=== PATIENT | female | born 1995 | race Hispanic/Latino ===

== ENCOUNTER 2018-02-23 15:51 | Emergency (ER) | payer SELFPAY ==
[2018-02-23 16:37] LABS: Urine Blood NEGATIVE (NEG); Urine Glucose 1+ (NEG); Urine Protein 2+ (NEG)
[2018-02-23 16:45] LABS: Urine Bacteria <20 /HPF (<20); Urine Culture Reflex Order NOT NEEDED; Urine RBC <5 /HPF (NONE SEEN)
--- NOTE | 2018-02-23 17:18 | EDPHYS ---
Physician Documentation [facility] Name: Rosa Rodriguez Age: 22 yrs Sex: Female : 1995 Arrival Date: 02/23/2018 Time: 15:55 Bed 23 Private MD: ED Physician Thor Turner HPI: 02/23 16:21 This 22 yrs old Female presents to ER via Ambulatory with complaints of Pain cp With Urination. 16:21 The patient presents with urinary symptoms, dysuria, frequency. cp 16:21 Onset: The symptoms/episode began/occurred 2 day(s) ago. Associated signs and symptoms: cp Pertinent negatives: fever, vaginal bleeding, vaginal discharge, abdominal pain, back pain. 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 - Social history:: Smoking status: Patient/guardian denies using tobacco. - Ebola Screening: : Patient denies travel to an Ebola-affected area in the 21 days before illness onset. ROS: 16:22 Constitutional: Negative for body aches, chills, fever, poor PO intake. cp 16:22 Back: Negative for pain at rest, pain with movement, radiated pain. 16:22 : Positive for urinary frequency, burning with urination, Negative for vaginal bleeding, vaginal discharge. 16:22 Neuro: Negative for altered mental status, dizziness, headache, weakness. 16:22 All other systems are negative. Exam: 16:25 Constitutional: The patient appears in no acute distress, alert, awake, comfortable, cp non-toxic, well developed, well nourished. 16:25 Head/Face: Normocephalic, atraumatic. cp 16:25 Eyes: Periorbital structures: appear normal, Conjunctiva: normal, no exudate, no injection, Lids and lashes: appear normal, bilaterally. 16:25 ENT: External ear(s): are unremarkable, Nose: is normal, Mouth: is normal, Posterior pharynx: is normal, airway is patent. 16:25 Chest/axilla: Inspection: normal. 16:25 Cardiovascular: Rate: normal. 16:25 Respiratory: the patient does not display signs of respiratory distress, Respirations: normal, no use of accessory muscles, no retractions, no splinting, no tachypnea, labored breathing, is not present. 16:25 Abdomen/GI: Exam negative for discomfort, distension, guarding, Inspection: abdomen appears normal. 16:25 Back: pain, is absent, ROM is normal. Vital Signs: 16:15 BP 126 / 74; Pulse 65; Resp 16; Temp 97.6; Pulse Ox 100% on R/A; Weight 79.38 kg (R); aj1 Height 5 ft. 4 in. (162.56 cm) (R); Pain 8/10; 17:28 BP 115 / 78; Pulse 70; Resp 18; Pulse Ox 100% on R/A; Pain 2/10; mg2 16:15 Body Mass Index 30.04 (79.38 kg, 162.56 cm) aj1 MDM: 16:18 Patient medically screened. cp 16:30 Differential diagnosis: urinary tract infection, pyelonephritis, vaginitis, sepsis. cp 17:17 Data reviewed: vital signs, nurses notes, lab test result(s), and as a result, I will cp discharge patient. 17:17 Counseling: I had a detailed discussion with the patient and/or guardian regarding: the cp historical points, exam findings, and any diagnostic results supporting the discharge/admit diagnosis, lab results, to return to the emergency department if symptoms worsen or persist or if there are any questions or concerns that arise at home. 02/23 16:22 Order name: Urine Microscopic Only 02/23 16:22 Order name: Urine Culture 02/23 16:22 Order name: Urine Microscopic Only; Complete Time: 17:15 EDMT 02/23 17:15 Interpretation: Normal except: UWBC 20-50; SQEPI 10-20. 02/23 16:22 Order name: Urine Culture EDMT 02/23 16:35 Order name: Urine Dipstick--Ancillary (enter results); Complete Time: 17:15 02/23 16:35 Order name: Urine --Ancillary (enter results); Complete Time: 17:15 02/23 16:19 Order name: Urine Dipstick-Ancillary (obtain specimen); Complete Time: 16:33 cp 02/23 16:19 Order name: Urine Test (obtain specimen); Complete Time: 16:33 cp Administered Medications: No medications were administered Disposition: 18:00 Chart complete. cp 18:39 Co-signature as Attending Physician, Thor Turner MD. rn Disposition: 02/23/18 17:17 Discharged to Home. Impression: Dysuria. - Condition is Stable. - Discharge Instructions: Dysuria. - Prescriptions for Bactrim DS 800- 160 mg Oral Tablet - take 1 tablet by ORAL route every 12 hours for 7 days; 14 tablet. - Medication Reconciliation Form, Thank You Letter, Antibiotic Education, Prescription Opioid Use form. - Follow up: Private Physician; When: 2 - 3 days; Reason: symptoms continue. - Problem is new. - Symptoms are unchanged. Signatures: Dispatcher [employer] EDNunu Torrez RN RN aj1 Thor Turner MD MD rn Ronnie Evans PA PA cp Domingo Stone RN RN mg2 Corrections: (The following items were deleted from the chart) 17:29 17:17 02/23/2018 17:17 Discharged to Home. Impression: Dysuria. Condition is Stable. mg2 Forms are Medication Reconciliation Form, Thank You Letter, Antibiotic Education, Prescription Opioid Use. Follow up: Private Physician; When: 2 - 3 days; Reason: symptoms continue. Problem is new. Symptoms are unchanged. cp
--- NOTE | 2018-02-23 17:18 | ER ---
Nurse's Notes [facility] Name: Rosa Rodriguez Age: 22 yrs Sex: Female : 1995 Arrival Date: 02/23/2018 Time: 15:55 Bed 23 Private MD: Diagnosis: Dysuria Presentation: 02/23 16:12 Presenting complaint: Patient states: Reports dysuria and urinary frequency since aj1 Monday. She bought some Azo's, but they aren't helping. She tried calling her doctor but they couldn't get her in until next week and she did not feel like she could wait that long. denies fever. Transition of care: patient was not received from another setting of care. Onset of symptoms was February 21, 2018. Risk Assessment: Do you want to hurt yourself or someone else? Patient reports no desire to harm self or others. Initial Sepsis Screen: Does the patient meet any 2 criteria? No. Patient's initial sepsis screen is negative. Does the patient have a suspected source of infection? No. Patient's initial sepsis screen is negative. Care prior to arrival: None. 16:12 Method Of Arrival: Ambulatory aj 16:12 Acuity: EUGENE 3 aj1 Triage Assessment: 16:15 General: Appears in no apparent distress. comfortable, Behavior is calm, cooperative, aj1 appropriate for age. Pain: Complains of pain in groin Pain currently is 8 out of 10 on a pain scale. Neuro: Level of Consciousness is awake, alert, obeys commands. Cardiovascular: Patient's skin is warm and dry. Respiratory: Airway is patent Respiratory effort is even, unlabored, Respiratory pattern is regular, symmetrical. 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 - Social history:: Smoking status: Patient/guardian denies using tobacco. - Ebola Screening: : Patient denies travel to an Ebola-affected area in the 21 days before illness onset. Screenin:38 Abuse screen: Denies threats or abuse. Denies injuries from another. Nutritional mg2 screening: No deficits noted. Tuberculosis screening: No symptoms or risk factors identified. Fall Risk None identified. Assessment: 16:52 General: Appears in no apparent distress. comfortable, Behavior is calm, cooperative. mg2 Pain: Complains of pain in lower abdomen Pain does not radiate. Pain currently is 8 out of 10 on a pain scale. Quality of pain is described as burning, aching, Pain began gradually, 2-3 days ago. Is intermittent. Neuro: Level of Consciousness is awake, alert, obeys commands, Oriented to person, place, time, situation. Cardiovascular: Capillary refill < 3 seconds Patient's skin is warm and dry. Respiratory: Airway is patent Respiratory effort is even, unlabored, Respiratory pattern is regular, symmetrical. GI: No signs and/or symptoms were reported involving the gastrointestinal system. : Urine is orange colored- she was taking azo Reports burning with urination, pain in suprapubic area. EENT: No signs and/or symptoms were reported regarding the EENT system. Derm: Skin is intact, is healthy with good turgor, Skin is pink, warm \T\ dry. normal. Musculoskeletal: Circulation, motion, and sensation intact. 17:28 Reassessment: Patient appears in no apparent distress at this time. Patient and/or mg2 family updated on plan of care and expected duration. Pain level reassessed. Patient is alert, oriented x 3, equal unlabored respirations, skin warm/dry/pink. Vital Signs: 16:15 BP 126 / 74; Pulse 65; Resp 16; Temp 97.6; Pulse Ox 100% on R/A; Weight 79.38 kg (R); aj1 Height 5 ft. 4 in. (162.56 cm) (R); Pain 8/10; 17:28 BP 115 / 78; Pulse 70; Resp 18; Pulse Ox 100% on R/A; Pain 2/10; mg2 16:15 Body Mass Index 30.04 (79.38 kg, 162.56 cm) [facility] ED Course: 15:55 Patient arrived in ED. as 16:15 Triage completed. 1 16:15 Arm band placed on Patient placed in an exam room. [facility] 16:17 Jas Cano PA is PHCP. [place] 16:17 Thor Turner MD is Attending Physician. [facility] 16:17 Ronnie Evans PA is PHCP. cp 16:36 Urine collected: clean catch specimen, tea colored. tt1 16:37 Domingo Stone, RN is Primary Nurse. mg2 16:38 No provider procedures requiring assistance completed. mg2 16:54 Patient has correct armband on for positive identification. Bed in low position. Pulse mg2 ox on. NIBP on. Door closed. 17:28 Patient did not have IV access during this emergency room visit. mg2 Administered Medications: No medications were administered Outcome: 17:17 Discharge ordered by MD. cp 17:28 Discharged to home ambulatory. mg2 17:28 Condition: stable 17:28 Discharge instructions given to patient, Instructed on discharge instructions, follow up and referral plans. medication usage, Demonstrated understanding of instructions, follow-up care, medications, Prescriptions given X 1. 17:29 Patient left the ED. mg2 Signatures: Nunu Ca, RN RN aj1 Jas Cano PA PA jmm Martinez, Amelia as Page, Corey, PA PA cp La Nena, Jessi tt1 Domingo Stone, RN RN mg2
== END 2018-02-23 17:29 | disposition home or self-care (01) ==
LOC: ER 15:51
DX: R30.0 Dysuria (principal)
CPT/HCPCS: 81003; 81015; 81025; 87086; 87088; 99283

== ENCOUNTER 2018-12-09 20:03 | Emergency (ER) | payer SELFPAY ==
--- OUTSIDE RECORDS SUMMARY | 2018-12-09 20:05 | XMS REPORT ---
:1995 [facility] [address] [place] [place] [id number] Care Team Providers Name Role Phone Unavailable Unavailable Unavailable Problems This patient has no known problems. Allergies, Adverse Reactions, Alerts This patient has no known allergies or adverse reactions. Medications This patient has no known medications.
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
[2018-12-09] MEDS ORDERED: ONDANSETRON 4 MG (ODT) TAB ONE (20:53)
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
== END 2018-12-09 21:15 | disposition home or self-care (01) ==
LOC: ER 20:03
DX: S00.03XA Contusion of scalp, initial encounter (principal); S00.90XA Unspecified superficial injury of unspecified part of head, initial encounter; Y04.0XXA Assault by unarmed brawl or fight, initial encounter; R11.2 Nausea with vomiting, unspecified
CPT/HCPCS: 70450; 70486; 72125; 76377; 99284

== ENCOUNTER 2019-06-18 14:58 | Emergency (ER) | payer SELFPAY ==
--- OUTSIDE RECORDS SUMMARY | 2019-06-18 15:00 | XMS REPORT ---
:1995 [facility] Address [address] [place] [address] Dr. [address] [place] [address] Care Team Providers Name Role Phone Unavailable Unavailable Unavailable Problems This patient has no known problems. Allergies, Adverse Reactions, Alerts This patient has no known allergies or adverse reactions. Medications This patient has no known medications.
--- OUTSIDE RECORDS SUMMARY | 2019-06-18 15:01 | XMS REPORT | Summary of Care ---
:1995 Author Organization [facility] Address [address] [place] [address] Care Team Providers Name Role Phone Carlita Sahu Primary Care Provider Encounter Details Date Type Department Care Team Description 01/25/2019 Orders Only [facility] Doctor Unassigned, No [address] [facility] [place] [address] [address] [place] [address] Allergies No Known Allergiesdocumented as of this encounter (statuses as of 01/25/2019) Medications Medication Sig Dispensed Refills Start Date End Date Status norgestimate-ethinyl Take 1 tablet by 1 Package 3 10/04/2018 Active estradiol (ORTHO mouth daily. TRI-CYCLEN, 28,) 0.18/0.215/0.25 mg-35 mcg (28) tabletIndications: Oral contraception initial prescription documented as of this encounter (statuses as of 01/25/2019) Active Problems Problem Noted Date Cervical high risk human papillomavirus (HPV) DNA test positive 10/04/2018 HSIL (high grade squamous intraepithelial lesion) on Pap smear of cervix 10/04 Lump or mass in breast 03/22/2017 Well woman exam 07/14/2015 Contraceptive management 07/14/2015 Morbid obesity 07/14/2015 Screen for STD (sexually transmitted disease) 07/14/2015 documented as of this encounter (statuses as of 01/25/2019) Resolved Problems Problem Noted Date Resolved Date Vaginal odor 03/22/2017 10/04/2018 Pap smear of cervix with ASCUS, cannot exclude HGSIL 08/12/2015 10/04/[address] 07/14/2015 10/04/2018 Overview: Removal date 05/31/19 Tobacco use disorder 07/14/2015 10/04/2018 documented as of this encounter (statuses as of 01/25/2019) Immunizations Name Administration Dates Next Due HPV 03/02/2016 HPV9 08/31/2016, 09/14/2015 Tdap 07/14/2015 documented as of this encounter Social History Tobacco Use Types Packs/Day Years Used Date Former Smoker 0.25 Quit: 08/02/2015 Smokeless Tobacco: Never Used Alcohol Use Drinks/Week oz/Week Comments No 0 Standard drinks or equivalent 0.0 Sex Assigned at Date Recorded Not on file Job Start Date Occupation Industry Not on file Not on file Not on file Travel History Travel Start Travel End No recent travel history available. documented as of this encounter Last Filed Vital Signs Not on filedocumented in this encounter Plan of Treatment Health Maintenance Due Date Last Done Comments VARICELLA VACCINES (1 of 2 2007 - 13+ 2-dose series) INFLUENZA VACCINE (#1) 2019 CHLAMYDIA SCREENING 10/05/2019 10/04/2018, 05/05/2017, 03/22/2017, Additional history exists PAP SMEAR 10/04/2021 10/04/2018, 03/22/2017, 03/02/2016, Additional history exists DTaP,Tdap,and Td Vaccines 07/14/2025 07/14/2015 (2 - Td) HPV VACCINES Completed 08/31/2016, 03/02/2016, 09/14/2015 PNEUMOCOCCAL 0-64 YEARS Aged Out No longer eligible COMBINED SERIES based on patient's age to complete this topic documented as of this encounter Procedures Procedure Name Priority Date/Time Associated Diagnosis Comments NO SHOW OR MISSED Routine 01/25/2019 3:38 PM APPOINTMENT POLICY CDT ACKNOWLEDGEMENT documented in this encounter Results Not on filedocumented in this encounter Insurance Payer Benefit Plan Subscriber ID Effective Phone Address Type / Group Dates [facility] xxxxxxxxx 2018-Prese [phone] Medicaid WOMEN nt [address] [place] [address] documented as of this encounter Advance Directives Name Relationship Healthcare Agent Relationship Communication Xuan Pillo Mother Primary healthcare agent
--- OUTSIDE RECORDS SUMMARY | 2019-06-18 15:02 | XMS REPORT | Summary of Care ---
:1995 Author Organization [facility] Address [address] [place] [address] Care Team Providers Name Role Phone Carlita Sahu [facility] Primary Care Provider Reason for Visit Reason Comments STD Testing CONTROL Breast Pain Encounter Details Date Type Department Care Team Description 01/25/2019 Office Visit [facility]- Carlita Sahu, Screen for STD (sexually transmitted disease) (Primary Dx); [facility] Encounter for surveillance of contraceptive pills; [address] Lump or mass in breast [facility] A [address] [place], [place] [id number] Allergies No Known Allergiesdocumented as of this [...] of this encounter Last Filed Vital Signs Vital Sign Reading Time Taken Comments Blood Pressure 110/70 01/25/2019 3:55 PM CDT Pulse 75 01/25/2019 3:55 PM CDT Temperature 37.2 C (99 F) 01/25/2019 3:55 PM CDT Respiratory Rate 16 01/25/2019 3:55 PM CDT Oxygen Saturation - - Inhaled Oxygen Concentration - - Weight 79.5 kg (175 lb 4 oz) 01/25/2019 3:55 PM CDT Height - - Body Mass Index 30.08 10/04/2018 1:14 PM CDT documented in this encounter Progress Notes Carlita Sahu, DIRECTOR MARKETING ANALYTICS - 01/25/2019 3:30 PM CDT Chief complaint: Chief Complaint Patient presents with STD Testing CONTROL Breast Pain HPI Rosa Rodriguez is a 23 year old here today with multiple complaints Patient requesting STD testing. Recently broke up with boyfriend and had unprotected intercourse with a new partner. Denies symptoms. Pt desires to restart OCPs. She was started on OCPs in 09/2018. Took OCPs for 3 months, and stopped taking pills last month. Patient's last menstrual period was 01/09/2019. Had unprotected intercourse last week. Pt continues to report a painful lump in the upper outer quadrant of her left breast. She reports the lump "swells" during her menses and is more painful. She also reports abdominal cramping that started this week. No associated symptoms. Histories OB History Para Term AB Living 1 1 1 1 SAB TAB Ectopic Multiple Live Births 1 # Outcome Date GA Lbr Zen/2nd Weight Sex Delivery Anes PTL Lv 1 Term 09/20/10 40w0d 8 lb 7.8 oz (3.85 kg) F SEC Spinal N ERICK Past Medical History: Diagnosis Date Pap smear abnormality of cervix 07/14/2015 asc-h Family History Problem Relation Age of Onset Heart Father High cholesterol Father Coronary Heart Disease Father Heart Paternal Grandfather High cholesterol Paternal Grandfather Coronary Heart Disease Paternal Grandfather No Significant Medical Problems Mother Diabetes Maternal Grandmother No Significant Medical Problems Maternal Grandfather Hypertension Paternal Grandmother Coronary Heart Disease Paternal Grandmother High cholesterol Paternal Grandmother No Significant Medical Problems Paternal Uncle No Significant Medical Problems Sister No Significant Medical Problems Brother No Significant Medical Problems Maternal Aunt No Significant Medical Problems Maternal Uncle No Significant Medical Problems Paternal Aunt Arthritis NoFHx Asthma NoFHx defects NoFHx Breast Cancer NoFHx Colon Cancer NoFHx Ovarian Cancer NoFHx Uterine Cancer NoFHx Cancer NoFHx Depression NoFHx Genetic NoFHx Mental retardation NoFHx Neurological NoFHx Osteoporosis NoFHx Psychiatry NoFHx Family Status Relation Name Status Fa Alive PGFa Mo Alive MGMo Alive MGFa Alive PGMo Alive PUnc Alive Sis Alive Bro Alive MAunt Alive MUnc Alive PAunt Alive NoFHx (Not Specified) Past Surgical History: Procedure Laterality Date SECTION 09-20-2010 Social History Socioeconomic History Marital status: Single Spouse name: Not on file Number of children: Not on file Years of education: Not on file Highest education level: Not on file Occupational History Not on file Social Needs Financial resource strain: Not on file Food insecurity: Worry: Not on file Inability: Not on file Transportation needs: Medical: Not on file Non-medical: Not on file Tobacco Use Smoking status: Former Smoker Packs/day: 0.25 Last attempt to quit: 08/02/2015 Years since quittin.4 Smokeless tobacco: Never Used Substance and Sexual Activity Alcohol use: No Alcohol/week: 0.0 oz Drug use: No Sexual activity: Yes Partners: Male control/protection: Implant, Condom Comment: last sexual intercourse 10/02/2018 Lifestyle Physical activity: Days per week: Not on file Minutes per session: Not on file Stress: Not on file Relationships Social connections: Talks on phone: Not on file Gets together: Not on file Attends jehovah's witness service: Not on file Active member of club or organization: Not on file Attends meetings of clubs or organizations: Not on file Relationship status: Not on file Intimate partner violence: Fear of current or ex partner: Not on file Emotionally abused: Not on file Physically abused: Not on file Forced sexual activity: Not on file Other Topics Concern Not on file Social History Narrative Oriental Orthodox preference none. Patient lives with daughter. Social History Substance and Sexual Activity Sexual Activity Yes Partners: Male control/protection: Implant, Condom Comment: last sexual intercourse 10/02/2018 Labs Labs are pending. Radiology Radiology pending. Allergies Rosa has No Known Allergies. Medications Rosa has a current medication list which includes the following prescription( s): norgestimate-ethinyl estradiol. Review of Systems Constitutional: Negative. Breasts: Positive for mass and pain. Genitourinary: Negative. Neurological: Negative. Psychiatric/Behavioral: Negative. Endocrine: Endocrine negative BP 110/70 | Pulse 75 | Temp 37.2 C (99 F) | Resp 16 | Wt 175 lb 4 oz ( 79.5 kg) | LMP 01/09/2019 | BMI 30.08 kg/m Pregravid BMI: Could not be calculated Physical Exam Vitals reviewed. Constitutional: She is oriented to person, place, and time. She appears well- developed and well-nourished. Pulmonary/Chest: Normal inspiratory effort. Neuro/Psychiatric: She has a normal mood and affect. She is oriented to person, place, and time. Breast: Left breast exhibits mass and tenderness. There is a dense area palpated in the left breast area of patient concern. No distinct mass appreciated. 4cm from nipple at 2 o'clock. Assessment/Plan 1. Screen for STD (sexually transmitted disease) Reviewed safe sex practices - GC & CHLAMYDIA AMPLIFIED ASSAY - TRICHOMONAS AMPLIFIED ASSAY 2. Encounter for surveillance of contraceptive pills Desires to restart. UPT today negative. Pt instructed to abstain x 2 week and RTC for 2nd UPT and OCP restart. - POCT TEST 3. Lump or mass in breast Will screen for BCCS prior to proceeding with breast imaging. Will plan for diagnostic mammo with possible ultrasound. Return to clinic in 2 weeks. Discussed treatment options. Reviewed patient instructions and provided printed copy. This visit did not involve counseling and coordination that comprised more than 50% of the visit time. documented in this encounter Plan of Treatment Date Type Specialty Care Team Description 01/28/2019 Office Visit [facility], [facility] Room 02/08/2019 Office Visit [facility] Carlita Sahu FNP [address] [place] [address] [phone] Name Type Priority Associated Diagnoses Date/Time GC & CHLAMYDIA AMPLIFIED LAB Routine Screen for STD (sexually 01/25/2019 4 :02 PM ASSAY transmitted disease) CDT TRICHOMONAS AMPLIFIED LAB Routine Screen for STD (sexually 01/25/2019 4: 02 PM ASSAY transmitted disease) CDT Health Maintenance Due Date Last Done Comments [...] Procedure Name Priority Date/Time Associated Diagnosis Comments POCT Routine 01/25/2019 4:04 Encounter for Results for this TEST PM CDT surveillance of procedure are in contraceptive pills the results section. documented in this encounter Results POCT TEST (01/25/2019 4:04 PM CDT) POCT PREG Negative On board controls acceptable Yes with C Line POCT PREG LOT # POCT PREG TEST DATE Specimen Urine - URINE, CLEAN CATCH documented in this encounter Visit Diagnoses Diagnosis Screen for STD (sexually transmitted disease) - Primary Screening examination for venereal disease Encounter for surveillance of contraceptive pills Surveillance of previously prescribed contraceptive pill Lump or mass in breast documented in this encounter Insurance Payer Benefit Plan Subscriber ID Effective Phone Address Type / Group Dates [facility] xxxxxxxxx 2018-Tika [phone] Medicaid WOMEN nt [address] [place] [address] documented as of this encounter Advance Directives Name Relationship Healthcare Agent Relationship Communication Xuan Pillo Mother Primary healthcare agent
--- OUTSIDE RECORDS SUMMARY | 2019-06-18 15:02 | XMS REPORT | Summary of Care ---
:1995 Author Organization [facility] Address [address] [place] [address] Care Team Providers Name Role Phone Carlita Sahu [facility] Primary Care Provider Reason for Visit Reason Comments STD Testing CONTROL Breast Pain Encounter Details Date Type Department Care Team Description 01/25/2019 Office Visit [facility]- Carlita Sahu, Screen for STD (sexually transmitted disease) (Primary Dx); [facility] Encounter for surveillance of contraceptive pills; [address] Lump or mass in breast [facility] A [address] [place], [place] [id number] Allergies No Known Allergiesdocumented as of this [...] in this encounter Progress Notes Carlita Sahu, MENTAL TESTER - 01/25/2019 3:30 PM CDT Chief complaint: [...] file Gets together: Not on file Attends yazidism service: Not on file Active member of [...] Concern Not on file Social History Narrative Amish preference none. Patient lives with daughter. Social History Substance and Sexual Activity Sexual Activity Yes Partners: Male control/protection: Implant, Condom Comment: last sexual intercourse 10/02/2018 Labs Labs are pending. Radiology Radiology pending. Allergies Roas has No Known Allergies. Medications Rosa has [...] Description 01/28/2019 Office Visit [facility] 2, [facility] Room 02/08/2019 Office Visit [facility] Carlita Sahu FNP [address] [place] [address] [phone] Name Type Priority Associated Diagnoses Date/Time GC [...] Effective Phone Address Type / Group Dates [facility] xxxxxxxxx 2018-Tika [phone] Medicaid WOMEN nt [address] [place] [address] documented as of this encounter Advance Directives Name Relationship Healthcare Agent Relationship Communication Xuan Pillo Mother Primary healthcare agent
--- OUTSIDE RECORDS SUMMARY | 2019-06-18 15:03 | XMS REPORT | Summary of Care ---
:1995 Author Organization [facility] Address [address] [place] [id number] Care Team Providers Name Role Phone Carlita Sahu Primary Care Provider Reason for Visit Reason Comments CONTROL Encounter Details Date Type Department Care Team Description 02/08/2019 Nurse Visit [facility]- Carlita Sahu, [facility] [address] [place] [address] Encounter for initial prescription of contraceptive pills ( Primary Dx); [place] Visit, [facility] Nurse Oral contraception initial prescription [address] [place] [address] Allergies No Known Allergiesdocumented as of this encounter (statuses as of 02/08/2019) Medications Medication Sig Dispensed Refills Start Date End Date Status norgestimate-ethinyl Take 1 tablet 1 Package 8 02/08/2019 Active estradiol (ORTHO by mouth TRI-CYCLEN, 28,) daily. 0.18/0.215/0.25 mg-35 mcg (28) tabletIndications: Oral contraception initial prescription norgestimate-ethinyl Take 1 tablet 1 Package 3 10/04/2018 02/08/2019 Discontinued estradiol (ORTHO by mouth TRI-CYCLEN, 28,) daily. 0.18/0.215/0.25 mg-35 mcg (28) tabletIndications: Oral contraception initial prescription documented as of this encounter (statuses as of 02/08/2019) Active Problems Problem Noted Date Cervical high risk human papillomavirus (HPV) DNA test positive 10/04/2018 HSIL (high grade squamous intraepithelial lesion) on Pap smear of cervix 10/04 Lump or mass in breast 03/22/2017 Well woman exam 07/14/2015 Contraceptive management 07/14/2015 Morbid obesity 07/14/2015 Screen for STD (sexually transmitted disease) 07/14/2015 documented as of this encounter (statuses as of 02/08/2019) Resolved Problems Problem Noted Date Resolved Date Vaginal odor 03/22/2017 10/04/2018 Pap smear of cervix with ASCUS, cannot exclude HGSIL 08/12/2015 10/04/[address] 07/14/2015 10/04/2018 Overview: Removal date 05/31/19 Tobacco use disorder 07/14/2015 10/04/2018 documented as of this encounter (statuses as of 02/08/2019) Immunizations Name Administration Dates Next Due HPV [...] Sign Reading Time Taken Comments Blood Pressure 117/71 02/08/2019 4:03 PM CDT Pulse 84 02/08/2019 4:03 PM CDT Temperature 36.7 C (98 F) 02/08/2019 4:03 PM CDT Respiratory Rate 16 02/08/2019 4:03 PM CDT Oxygen Saturation - - Inhaled Oxygen Concentration - - Weight 77.8 kg (171 lb 7 oz) 02/08/2019 4:03 PM CDT Height 162.6 cm (5' 4") 02/08/2019 4:03 PM CDT Body Mass Index 29.43 02/08/2019 4:03 PM CDT documented in this encounter Patient Instructions Patient InstructionsRoxane Alvarado LVN - 02/08/2019 3:30 PM CDT Control: The Pill control pills contain hormones that help prevent . The pills are prescribed by your healthcare provider. There are many types of control pills available. If you have side effects from one type of pill, tell your healthcare provider. He or she may be able to prescribe a pill that works better for you. rates Talk to your healthcare provider about the effectiveness of this control method. Using the pill Take one pill daily. Take it at around the same time each day. Follow your healthcare providers guidelines on when to start your first pack of pills. You mayneed to use another form of control for a week or more after you start. Know what to do if you forget to take a pill. (Consult your healthcare provider or check the package.) If you miss more than one pill, you may need to use a backup method of control for a weekor more. Pros Low rate No interruption to sex Easy to use Can help make periods more regular May lower your risk of ovarian cysts and certain cancers May decrease menstrual cramps, menstrual flow, and acne Cons Does not protect against sexually transmittedinfection (STIs) Requires taking a pill on time each day May not work as well when taken with certain other medicines (check with your pharmacist) May cause side effects such as nausea, irregular bleeding, headaches, breast tenderness, fatigue,or mood changes (these often go away within 3 months) May increase the risk of blood clots,heart attack, and stroke The pill may not be for you The pill may not be for you if: You are a smoker and over age 35 You havehigh blood pressureor gallbladder, liver, cerebrovascular or heart disease You have diabetes, migraines, blood clot in the vein or artery, lupus, depression, certain lipid disorders, or take medicines that interfere with the pill In these cases, discuss the risks with your healthcare provider. Date Last Reviewed: 07/20/201619998509-7857 [employer]. [address] [place] [address]. All rights reserved. This information is not intended as a substitute for professional medical care. Always follow your healthcare professional's instructions. documented in this encounter Progress Notes Roxane Alvarado LVN - 02/08/2019 3:30 PM CDTPatient present for ocp start. UPT negative today, last intercourse 01/19/2019. Per provider refilledpatient Ortho tri-cyclen x 9. OCPs called into pharmacy on file. Patient provided with education both written and verbal on control method chosen. Instructed patient to use a back up method for one month. Advised patient to RTC in 09/2019 months for WWE. Patient verbalized understanding. documented in this encounter Plan of Treatment Date Type Specialty Care Team Description 02/11/2019 Appointment Radiology Carlita Sahu, [facility] [address] [place] [address] [phone] 02/13/2019 Appointment Radiology Carlita Sahu, [facility] [address] [place], [place] [id number] 10/07/2019 Office Visit [facility] Carlita Sahu FNP [address] [place], [place] [address] Health Maintenance Due Date Last Done Comments VARICELLA VACCINES (1 of 2 2007 - 13+ 2-dose series) INFLUENZA VACCINE (#1) 2019 CHLAMYDIA SCREENING 01/26/2020 01/25/2019, 10/04/2018, 05/05/2017, Additional history exists PAP SMEAR 10/04/2021 10/04/2018, 03/22/2017, 03/02/2016, Additional history exists DTaP,Tdap,and Td Vaccines 07/14/2025 07/14/2015 (2 - Td) HPV VACCINES Completed 08/31/2016, 03/02/2016, 09/14/2015 PNEUMOCOCCAL 0-64 YEARS Aged Out No longer eligible COMBINED SERIES based on patient's age to complete this topic documented as of this encounter Procedures Procedure Name Priority Date/Time Associated Diagnosis Comments POCT Routine 02/08/2019 4:12 Encounter for initial Results for this TEST PM CDT prescription of procedure are in contraceptive pills the results section. documented in this encounter Results POCT TEST (02/08/2019 4:12 PM CDT) POCT PREG Negative On board controls acceptable Yes with C Line POCT PREG LOT # POCT PREG TEST DATE Specimen Urine - URINE, CLEAN CATCH documented in this encounter Visit Diagnoses Diagnosis Encounter for initial prescription of contraceptive pills - Primary General counseling for prescription of oral contraceptives Oral contraception initial prescription documented in this encounter Insurance Payer Benefit Plan Subscriber ID Effective Phone Address Type / Group Dates [facility] xxxxxxxxx 2018-Tika [phone] Medicaid WOMEN nt [address] [place] [address] documented as of this encounter Advance Directives Name Relationship Healthcare Agent Relationship Communication Xuan Pillo Mother Primary healthcare agent
--- OUTSIDE RECORDS SUMMARY | 2019-06-18 15:03 | XMS REPORT | Summary of Care ---
:1995 Author Organization [facility] Address [address] [place] [id number] Care Team Providers Name Role Phone Carlita Sahu BUSINESS OFFICE ASSOCIATE Primary Care Provider Reason for Referral Radiology Services (Routine) Status Reason Specialty Diagnoses / Referred By Referred To Procedures Contact Contact New Request Diagnostic Diagnoses Breast mass, left Carlita Sahu Radiology Procedures BI ULTRASOUND BREAST COMPLETE LEFT N, BUSINESS OFFICE ASSOCIATE [address] [place] [address] Radiology Services (Routine) Status Reason Specialty Diagnoses / Referred By Referred To Procedures Contact Contact New Request Diagnostic Diagnoses Breast mass, left Carlita Sahu Radiology Procedures BI DIAGNOSTIC MAMMOGRAM LEFT N, BUSINESS OFFICE ASSOCIATE [address] [place] [address] Reason for Visit Reason Comments BREAST MASS Encounter Details Date Type Department Care Team Description 02/06/2019 Case Management [facility]- Carlita Sahu, BUSINESS OFFICE ASSOCIATE BREAST MASS [place] [address] [facility] [place] [address] [place], [place] [address] Allergies No Known Allergiesdocumented as of this encounter (statuses as of 02/06/2019) Medications Medication Sig Dispensed Refills Start Date End Date Status norgestimate-ethinyl Take 1 tablet by 1 Package 3 10/04/2018 Active estradiol (ORTHO mouth daily. TRI-CYCLEN, 28,) 0.18/0.215/0.25 mg-35 mcg (28) tabletIndications: Oral contraception initial prescription documented as of this encounter (statuses as of 02/06/2019) Active Problems Problem Noted Date Cervical high risk human papillomavirus (HPV) DNA test positive 10/04/2018 HSIL (high grade squamous intraepithelial lesion) on Pap smear of cervix 10/04 Lump or mass in breast 03/22/2017 Well woman exam 07/14/2015 Contraceptive management 07/14/2015 Morbid obesity 07/14/2015 Screen for STD (sexually transmitted disease) 07/14/2015 documented as of this encounter (statuses as of 02/06/2019) Resolved Problems Problem Noted Date Resolved Date Vaginal odor 03/22/2017 10/04/2018 Pap smear of cervix with ASCUS, cannot exclude HGSIL 08/12/2015 10/04/[address] 07/14/2015 10/04/2018 Overview: Removal date 05/31/19 Tobacco use disorder 07/14/2015 10/04/2018 documented as of this encounter (statuses as of 02/06/2019) Immunizations Name Administration Dates Next Due HPV [...] filedocumented in this encounter Plan of Treatment Date Type Specialty Care Team Description 02/08/2019 Office Visit [facility] Carlita Sahu, BUSINESS OFFICE ASSOCIATE [address] [facility] [place] [address] [phone] Name Type Priority Associated Diagnoses Order Schedule BI DIAGNOSTIC MAMMOGRAM IMAGING Routine Breast mass, left 1 Occurrences starting LEFT 02/06/2019 until 04/08/2020 BI ULTRASOUND BREAST IMAGING Routine Breast mass, left Expected: 02/06/2019 , COMPLETE LEFT Expires: 04/08/2020 Health Maintenance Due Date Last Done Comments [...] this topic documented as of this encounter Results Not on filedocumented in this encounter Visit Diagnoses Diagnosis Breast mass, left - Primary Lump or mass in breast documented in this encounter Insurance Payer Benefit Plan Subscriber ID Effective Phone Address Type / Group Dates [facility] xxxxxxxxx 2018-Presharini [phone] Medicaid WOMEN nt [address] [place] [address] documented as of this encounter Advance Directives Name Relationship Healthcare Agent Relationship Communication Xuan Ferro Mother Primary healthcare agent
[2019-06-18 16:14] LABS: Urine Bacteria <20 /HPF (<20); Urine RBC NONE SEEN /HPF (NONE SEEN)
[2019-06-18 16:15] LABS: Urine Culture Reflex Order NOT NEEDED; Urine Mucus 1+ /HPF (NONE SEEN)
[2019-06-18 16:30] LABS: Absolute Lymphocytes (CBC) 2.3 K/uL (0.7-4.9); Basophils % 0.7 % (0-1.3); Lymphocytes % 24.5 % (15.3-44.8); MPV 8.9 fL (7.6-11.3); RBC Red Blood Cell Count 4.04 M/uL (3.86-4.86)
[2019-06-18 17:22] LABS: ALT/SGPT 18 U/L (12-78); AST/SGOT 13 U/L (15-37); Albumin 4.1 g/dL (3.4-5.0); Alkaline Phosphatase 83 U/L (45-117); BUN Blood Urea Nitrogen 7 mg/dL (7-18); Bicarbonate 28 mmol/L (21-32); Bilirubin Direct < 0.1 mg/dL (0-0.2); Bilirubin Total 0.2 mg/dL (0.2-1.0); Glucose Level 82 mg/dL (74-106); Lipase 93 U/L (73-393); Potassium 3.9 mmol/L (3.5-5.1); Protein, Total 7.6 g/dL (6.4-8.2); Sodium Level 140 mmol/L (136-145)
--- NOTE | 2019-06-18 17:44 | RAD REPORT ---
EXAM DESCRIPTION: CT - Abdomen Pelvis W Contrast - 06/18/2019 5:31 pm CLINICAL HISTORY: ABD PAIN COMPARISON: No comparisons TECHNIQUE: Biphasic, helical CT imaging of the abdomen and pelvis was performed following 100 ml non -ionic IV contrast. No oral contrast given. All CT scans are performed using dose optimization technique as appropriate and may include automated exposure control or mA/KV adjustment according to patient size. FINDINGS: No suspicious findings in the lung bases. The liver, spleen, and pancreas show no suspicious findings. Gallbladder and biliary tree are also wi thout suspicious finding. Symmetric renal function is seen with no hydronephrosis or suspicious renal mass. No pyelonephritis o r acute parenchymal process. No bladder abnormalities. No adrenal abnormalities. Uterus and ovaries s how no suspicious findings. No dilated bowel loops or bowel wall thickening. No suspicion for appendicitis. No acute GI finding c onfirmed. Mild enteritis can still be present. No free air, free fluid or inflammatory stranding. No hernia, mass or bulky lymphadenopathy. No suspicious bony findings. IMPRESSION: Contrast enhanced CT abdomen and pelvis showing no emergent finding.
--- NOTE | 2019-06-18 17:48 | EDPHYS ---
Physician Documentation [facility] Name: Rosa Rodriguez Age: 23 yrs Sex: Female : 1995 Arrival Date: 06/18/2019 Time: 15:01 Bed 28 Private MD: ED Physician Ronnie Nixon HPI: 06/18 16:01 This 23 yrs old Female presents to ER via Ambulatory with complaints of jr8 Abdominal Pain. 16:01 The patient presents with abdominal pain in the left lower quadrant. Onset: The jr8 symptoms/episode began/occurred gradually, 1 month(s) ago, and became worse and became persistent. The symptoms do not radiate. Associated signs and symptoms: none. The symptoms are described as stabbing. Modifying factors: The symptoms are alleviated by nothing, the symptoms are aggravated by nothing. Severity of pain: At its worst the pain was moderate in the emergency department the pain is unchanged. The patient has not experienced similar symptoms in the past. The patient has not recently seen a physician. 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 - Coronavirus screen:: The patient has NOT traveled to [place], [place], or [place] in the past 14 days. The patient has NOT had contact with known/suspected case of Coronavirus?. - Social history:: Smoking status: Patient denies any tobacco usage or history of. - Ebola Screening: : Patient negative for fever greater than or equal to 101.5 degrees Fahrenheit, and additional compatible Ebola Virus Disease symptoms Patient denies exposure to infectious person Patient denies travel to an Ebola-affected area in the 21 days before illness onset No symptoms or risks identified at this time. ROS: 16:01 Eyes: Negative for injury, pain, redness, and discharge, ENT: Negative for injury, jr8 pain, and discharge, Neck: Negative for injury, pain, and swelling, Cardiovascular: Negative for chest pain, palpitations, and edema, Respiratory: Negative for shortness of breath, cough, wheezing, and pleuritic chest pain, Back: Negative for injury and pain, MS/Extremity: Negative for injury and deformity, Skin: Negative for injury, rash, and discoloration, Neuro: Negative for headache, weakness, numbness, tingling, and seizure. 16:01 Abdomen/GI: Positive for abdominal pain, Negative for nausea, vomiting, and diarrhea, constipation, abdominal cramps, abdominal distension. 16:01 : Negative for urinary symptoms, pelvic pain, flank pain, burning with urination, vaginal bleeding, vaginal discharge, vaginal itching, menstrual abnormality, missed period. Exam: 16:01 Eyes: Pupils equal round and reactive to light, extra-ocular motions intact. Lids and jr8 lashes normal. Conjunctiva and sclera are non-icteric and not injected. Cornea within normal limits. Periorbital areas with no swelling, redness, or edema. ENT: Nares patent. No nasal discharge, no septal abnormalities noted. Tympanic membranes are normal and external auditory canals are clear. Oropharynx with no redness, swelling, or masses, exudates, or evidence of obstruction, uvula midline. Mucous membranes moist. Neck: Trachea midline, no thyromegaly or masses palpated, and no cervical lymphadenopathy. Supple, full range of motion without nuchal rigidity, or vertebral point tenderness. No Meningismus. Cardiovascular: Regular rate and rhythm with a normal S1 and S2. No gallops, murmurs, or rubs. Normal PMI, no JVD. No pulse deficits. Respiratory: Lungs have equal breath sounds bilaterally, clear to auscultation and percussion. No rales, rhonchi or wheezes noted. No increased work of breathing, no retractions or nasal flaring. Back: No spinal tenderness. No costovertebral tenderness. Full range of motion. Skin: Warm, dry with normal turgor. Normal color with no rashes, no lesions, and no evidence of cellulitis. MS/ Extremity: Pulses equal, no cyanosis. Neurovascular intact. Full, normal range of motion. Neuro: Awake and alert, GCS 15, oriented to person, place, time, and situation. Cranial nerves II-XII grossly intact. Motor strength 5/5 in all extremities. Sensory grossly intact. Cerebellar exam normal. Normal gait. 16:01 Abdomen/GI: Inspection: abdomen appears normal, Bowel sounds: active, all quadrants, Palpation: soft, in all quadrants, mild abdominal tenderness, in the left lower quadrant, mass, is not appreciated, rebound tenderness, is not appreciated, voluntary guarding, is not appreciated, involuntary guarding, is not appreciated, no appreciated organomegaly, Indicators: McBurney's point is not tender, Morataya's sign is negative, Rovsing's sign is negative, Liver: tenderness, is not appreciated. Vital Signs: 15:16 BP 105 / 89; Pulse 73; Resp 17 S; Temp 99(O); Pulse Ox 100% on R/A; Weight 77.11 kg ca1 (R); Height 5 ft. 4 in. (162.56 cm) (R); 16:30 BP 110 / 77; Pulse 72; Resp 14; Temp 98.4(O); Pulse Ox 99% on R/A; Pain 3/10; ls4 20:00 BP 112 / 78; Pulse 72; Resp 14; Temp 98.4; Pulse Ox 99% on R/A; Pain 3/10; ls4 15:16 Body Mass Index 29.18 (77.11 kg, 162.56 cm) ca1 MDM: 15:44 Patient medically screened. jr8 17:46 Differential diagnosis: appendicitis, bowel obstruction, Dysmenorrhea, Ectopic jr8 , Endometriosis, Irritable bowel syndrome, Menorrhagia, non-specific abd pain, Ovarian Torsion, Pelvic Inflammatory Disease, Pyelonephritis, Tubal Ovarian Abcess, Ureterolithiasis, urinary tract infection. Data reviewed: vital signs, nurses notes, lab test result(s), radiologic studies, CT scan. Data interpreted: Pulse oximetry: on room air is 100 %. Interpretation: normal. Counseling: I had a detailed discussion with the patient and/or guardian regarding: the historical points, exam findings, and any diagnostic results supporting the discharge/admit diagnosis, lab results, radiology results, the need for outpatient follow up, a manager scientific, to return to the emergency department if symptoms worsen or persist or if there are any questions or concerns that arise at home. Special discussion: Based on the patient's Hx, exam, and Dx evaluation, there is no indication for emergent surgery or inpatient Tx. It is understood by the patient/guardian that if the Sx's persist or worsen they need to return immediately for re-evaluation. 06/18 15:43 Order name: Urine Microscopic Only; Complete Time: 16:23 jr8 06/18 15:43 Order name: Basic Metabolic Panel; Complete Time: 17:24 06/18 15:43 Order name: CBC with Diff; Complete Time: 16:39 06/18 15:43 Order name: Creatinine for Radiology; Complete Time: 17:24 06/18 15:43 Order name: Hepatic Function; Complete Time: 17:24 06/18 15:43 Order name: Lipase; Complete Time: 17:24 06/18 15:43 Order name: Urine Test (obtain specimen); Complete Time: 00:52 06/18 15:43 Order name: Urine Dipstick-Ancillary (obtain specimen); Complete Time: 00:52 06/18 15:43 Order name: IV Saline Lock; Complete Time: 18:24 06/18 15:43 Order name: Labs collected and sent; Complete Time: 18:25 06/18 15:58 Order name: CT Abd/Pelvis - IV Contrast Only; Complete Time: 17:46 [facility] 06/18 16:27 Order name: Urine Dipstick--Ancillary (enter results); Complete Time: 18:00 06/18 16:27 Order name: Urine --Ancillary (enter results); Complete Time: 18:00 06/18 16:29 Order name: Labs - recollect needed; Complete Time: 18:24 bd Administered Medications: No medications were administered Disposition: 06/19 07:19 Co-signature as Attending Physician, Ronnie Nixon MD I agree with the assessment and erin plan of care. Disposition: 06/18/19 17:47 Discharged to Home. Impression: Abdominal and pelvic pain. - Condition is Stable. - Discharge Instructions: Abdominal Pain, Adult. - Prescriptions for Ibuprofen 800 mg Oral Tablet - take 1 tablet by ORAL route every 12 hours As needed take with food; 20 tablet. - Medication Reconciliation Form, Thank You Letter, Antibiotic Education, Prescription Opioid Use form. - Follow up: Jameel Guillory MD; When: 1 week; Reason: Recheck today's complaints, Continuance of care, Re-evaluation by your physician. - Problem is new. - Symptoms have improved. Signatures: Dispatcher [employer] EDLaura Herbert Corey, MD MD cha Roszak, Josh, PA PA jr8 Kiera Beltran, RN RN ls4 Em Thomas RN RN ca1 Corrections: (The following items were deleted from the chart) 06/18 18:32 17:47 06/18/2019 17:47 Discharged to Home. Impression: Abdominal and pelvic pain. ls4 Condition is Stable. Forms are Medication Reconciliation Form, Thank You Letter, Antibiotic Education, Prescription Opioid Use. Follow up: Jameel Guillory; When: 1 week; Reason: Recheck today's complaints, Continuance of care, Re-evaluation by your physician. Problem is new. Symptoms have improved. jr8
--- NOTE | 2019-06-18 17:48 | ER ---
Nurse's Notes [facility] Name: Rosa Rodriguez Age: 23 yrs Sex: Female : 1995 Arrival Date: 06/18/2019 Time: 15:01 Bed 28 Private MD: Diagnosis: Abdominal and pelvic pain Presentation: 06/18 15:13 Presenting complaint: Patient states: Sharp pain on the L lower abdominal area, ca1 sometimes it feels like a cramp started at the beginning of May but has gotten worse. Reports nausea, denies fever, vomiting and diarrhea. Denies urinary symptoms. Transition of care: patient was not received from another setting of care. Onset of symptoms was June 18, 2019. Risk Assessment: Do you want to hurt yourself or someone else? Patient reports no desire to harm self or others. Initial Sepsis Screen: Does the patient meet any 2 criteria? No. Patient's initial sepsis screen is negative. Does the patient have a suspected source of infection? No. Patient's initial sepsis screen is negative. Care prior to arrival: None. 15:13 Method Of Arrival: Ambulatory ca1 15:13 Acuity: EUGENE 3 ca1 Triage Assessment: 15:45 General: Appears in no apparent distress. uncomfortable, Behavior is calm, cooperative. ls4 15:45 GI: Abdomen is round non-distended, Bowel sounds present X 4 quads. Abd is soft and non ls4 tender X 4 quads. 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 - Coronavirus screen:: The patient has NOT traveled to [place], [place], or [place] in the past 14 days. The patient has NOT had contact with known/suspected case of Coronavirus?. - Social history:: Smoking status: Patient denies any tobacco usage or history of. - Ebola Screening: : Patient negative for fever greater than or equal to 101.5 degrees Fahrenheit, and additional compatible Ebola Virus Disease symptoms Patient denies exposure to infectious person Patient denies travel to an Ebola-affected area in the 21 days before illness onset No symptoms or risks identified at this time. Screenin:50 Abuse screen: Denies threats or abuse. Denies injuries from another. Nutritional ls4 screening: No deficits noted. Tuberculosis screening: No symptoms or risk factors identified. Fall Risk None identified. Assessment: 15:42 GI: Bowel sounds present X 4 quads. Abd is soft and non tender X 4 quads. ls4 15:42 Pain: Complains of pain in left lower quadrant Pain currently is 7 out of 10 on a pain ls4 scale. Neuro: No deficits noted. Cardiovascular: No deficits noted. Respiratory: No deficits noted. : No deficits noted. Vital Signs: 15:16 BP 105 / 89; Pulse 73; Resp 17 S; Temp 99(O); Pulse Ox 100% on R/A; Weight 77.11 kg ca1 (R); Height 5 ft. 4 in. (162.56 cm) (R); 16:30 BP 110 / 77; Pulse 72; Resp 14; Temp 98.4(O); Pulse Ox 99% on R/A; Pain 3/10; ls4 20:00 BP 112 / 78; Pulse 72; Resp 14; Temp 98.4; Pulse Ox 99% on R/A; Pain 3/10; ls4 15:16 Body Mass Index 29.18 (77.11 kg, 162.56 cm) ca1 ED Course: 15:01 Patient arrived in ED. as 15:16 Triage completed. ca1 15:16 Arm band placed on right wrist. ca1 15:42 [facility] jr8 15:42 Ronnie Nixon MD is Attending Physician. jr8 16:00 Radiology exam delayed due to lab results not completed at this time. test vm2 not completed at this time. 16:00 Initial lab(s) drawn, by me, sent to lab. Inserted saline lock: 20 gauge in right tm3 antecubital area, using aseptic technique. 16:49 Kiera Beltran, RN is Primary Nurse. ls4 16:50 Patient has correct armband on for positive identification. Placed in gown. Bed in low ls4 position. Call light in reach. Side rails up X2. classroom monitor on. Pulse ox on. NIBP on. Warm blanket given. 16:52 Radiology exam delayed due to lab results not completed at this time. vm2 17:32 CT Abd/Pelvis - IV Contrast Only In Process Unspecified. EDMS 17:47 Jameel Guillory MD is Referral Physician. jr8 18:30 IV discontinued, intact, bleeding controlled, No redness/swelling at site. Pressure ls4 dressing applied. 06/19 00:54 No provider procedures requiring assistance completed. ls4 Administered Medications: No medications were administered Outcome: 06/18 17:47 Discharge ordered by . jr8 18:32 Patient left the ED. ls4 18:32 Discharged to home ambulatory. ls4 18:32 Condition: stable 18:32 Discharge instructions given to patient, family, Instructed on discharge instructions, ls4 follow up and referral plans. medication usage, Demonstrated understanding of instructions, follow-up care, medications, Prescriptions given X 3. Signatures: Dispatcher [employer] EDME Titi Swift 3 Mary Ellen Hou Josh, PA PA jr8 Kelsey Phillips 2 Kiera Beltran, PETRA RN ls4 Em Thomas RN RN ca1
[2019-06-18 17:58] LABS: Urine Blood 2+ (NEG); Urine Glucose NEGATIVE (NEG); Urine Protein NEGATIVE (NEG); Urine Specific Gravity 1.015 (1.005-1.030)
[2019-06-18 18:40] VITALS: BP 105/89; TEMP 99; O2SAT 100
== END 2019-06-18 18:32 | disposition home or self-care (01) ==
LOC: ER 14:58
DX: R10.2 Pelvic and perineal pain (principal)
CPT/HCPCS: 36415; 74177; 80048; 80076; 81003; 81015; 81025; 83690; 85025; 99284; Q9967

== ENCOUNTER 2019-09-06 11:34 | Emergency (ER) | payer OTHER, SELFPAY ==
--- OUTSIDE RECORDS SUMMARY | 2019-09-06 11:36 | XMS REPORT ---
:1995 Author Organization [facility] t Address [address] [place] [address] Care Team Providers Name Role Phone Unavailable Unavailable Unavailable Problems This patient has no known problems. Allergies, Adverse Reactions, Alerts This patient has no known allergies or adverse reactions. Medications This patient has no known medications.
--- OUTSIDE RECORDS SUMMARY | 2019-09-06 11:38 | XMS REPORT | Summary of Care ---
:1995 Author Organization [facility] Address [address] [place] [id number] Care Team Providers Name Role Phone Carlita Sahu Primary Care Provider Reason for Visit Reason Comments Initial Visit Encounter Details Date Type Department Care Team Description 07/09/[address] [facility] RMP- Arturo Martins upervision of high risk , antepartum (Primary Dx); Visit BARBIE Hernandez Previous delivery affecting pre gnancy, antepartum; [address] [place] [address] Patient desires vaginal yaakov h after section (); [place]; [id number] [place], [place] Nausea and vomiting during p regnancy prior to 22 weeks gestation; [phone] Generalized headaches; [phone] Need for prophylactic vaccination and in oculation against influenza; [phone] Obesity in preg john (Fax) Allergies No Known Allergiesdocumented as of this encounter (statuses as of 07/09/2019) Medications Medication Sig Dispensed Refills Start Date End Date Status norgestimate-ethinyl Take 1 tablet by 1 Package 8 02/08/2019 Active estradiol (ORTHO mouth daily. TRI-CYCLEN, 28,) 0.18/0.215/0.25 mg-35 mcg (28) tabletIndications: Oral contraception initial prescription documented as of this encounter (statuses as of 07/09/2019) Active Problems Problem Noted Date Supervision of high risk , antepartum 020 Previous delivery affecting , antepa rtum 07/09/2019 Multiparity 07/09/2019 Nausea and vomiting during prior to 22 weeks gestation 07/09/2019 Generalized headaches 07/09/2019 Need for prophylactic vaccination and inoculation agai nst influenza 07/09/2019 Overweight 07/09/2019 Patient desires vaginal after section ( ) 07/09/2019 Dyspareunia in male 03/26/2019 Cervical high risk human papillomavirus (HPV) DNA test positive 10/04/2018 HSIL (high grade squamous intraepithelial lesion) on P ap smear of cervix 10/04/2018 Lump or mass in breast 03/22/2017 Well woman exam 07/14/2015 Contraceptive management 07/14/2015 Morbid obesity 07/14/2015 Screening examination for venereal disease 07/14/2015 Estimated Date of Delivery Comments Yes 03/18/2020 Based on last menstr ual period of 06/12/2019 (Approximate) documented as of this encounter (statuses as of 07/09/2019) Resolved Problems Problem Noted Date Resolved Date Vaginal odor 03/22/2017 10/04/2018 Pap smear of cervix with ASCUS, cannot exclude HGSIL 016 10/04/[address] 07/14/2015 10/04/2018 Overview: Removal date 05/31/19 Tobacco use disorder 07/14/2015 10/04/2018 documented as of this encounter (statuses as of 07/09/2019) Immunizations Name Administration Dates Next Due HPV 03/02/2016 HPV9 08/31/2016, 09/14/2015 Influenza Virus Vaccine Quad .5 mL IM 6+ MO 07/09/2019 Tdap 07/14/2015 documented as of this encounter Social History Tobacco Use Types Packs/Day Years Used Date Former Smoker 0.25 Quit: 08/02/19 16 Smokeless Tobacco: Never Used Alcohol Use Drinks/Week oz/Week Comments No 0 Standard drinks or equivalent 0.0 Estimated Date of Delivery Comments Yes 03/18/2020 Based on last menstr ual period of 06/12/2019 (Approximate) Sex Assigned at Date Recorded Not on file Job Start Date Occupation Industry Not on file Not on file Not on file Travel History Travel Start Travel End No recent travel history available. documented as of this encounter Last Filed Vital Signs Vital Sign Reading Time Taken Comments Blood Pressure 116/61 07/09/2019 2:20 PM UNPAID INTERN Pulse 68 07/09/2019 2:20 PM UNPAID INTERN Temperature 36.8 C (98.2 F) 07/09/2019 2:20 PM UNPAID INTERN Respiratory Rate 16 07/09/2019 2:20 PM UNPAID INTERN Oxygen Saturation - - Inhaled Oxygen Concentration - - Weight 85 kg (187 lb 8 oz) 07/09/2019 2:20 PM UNPAID INTERN Height 162.6 cm (5' 4") 07/09/2019 2:20 PM UNPAID INTERN Body Mass Index 32.18 07/09/2019 2:20 PM UNPAID INTERN documented in this encounter Progress Notes Arturo Martins, DIETARY DIRECTOR - 07/09/2019 2:00 PM CST Chief complaint: Chief Complaint Patient presents with Initial Visit HPI CC: Initial Visit Rosa Rodriguez is a 24 year old, , /White female. Patient's last menstrual period was06/12/2019 (approximate). She is 3w6d with an intrauterine . Her Estimated Date of Delivery: 03/18/20. She is being seen today for her first obstetrical visit. Patient complains of nausea and vomiting with headaches. Patient denies taking any medication and believes she has symptoms due topregnancy only. She denies FM, contractions, LOF and bleeding today. Patient denies current or past physical, sexual or emotional abuse. OB History Para Term AB Living 2 1 1 1 SAB TAB Ectopic Multiple Live Births 1 # Outcome Date GA Lbr Zen/2nd Weight Sex Delivery Anes PTL Lv 2 Current 1 Term 09/20/10 40w0d 8 lb 7.8 oz (3.85 kg) F SEC Spinal N ERICK Histories OB History Para Term AB Living 2 1 1 1 SAB TAB Ectopic Multiple Live Births 1 # Outcome Date GA Lbr Zen/2nd Weight Sex Delivery Anes PTL Lv 2 Current 1 Term 09/20/10 40w0d 8 lb 7.8 oz (3.85 kg) F SEC Spinal N ERICK Past Medical History: Diagnosis Date Pap smear abnormality of cervix 07/14/2015 asc-h STD (sexually transmitted disease) screened Family History Problem Relation Age of Onset [...] Surgical History: Procedure Laterality Date SECTION 09-20-2010 COLPOSCOPY 2016 Social History Socioeconomic History Marital status: Single [...] Last attempt to quit: 08/02/2015 Years since quittin.9 Smokeless tobacco: Never Used Substance and Sexual Activity Alcohol use: No Alcohol/week: 0.0 standard drinks Drug use: No Sexual activity: Yes Partners: Male Comment: last sexual intercourse 07/08/2019 Lifestyle Physical activity: Days per week: Not on file Minutes per session: Not on file Stress: Not on file Relationships Social connections: Talks on phone: Not on file Gets together: Not on file Attends scientology service: Not on file Active member of [...] Concern Not on file Social History Narrative Scientologist preference none. Patient lives with daughter. No inside pets. Social History Substance and Sexual Activity Sexual Activity Yes Partners: Male Comment: last sexual intercourse 07/08/2019 Genetic Screen Autism / Mental Retardation: No Eric Disease: No Congenital Heart Defect: No Cystic Fibrosis: No Down Syndrome: No Familial Dysautonomia: No Hemophilia or other Blood Disorders: No Kemper Chorea: No Maternal Metabolic Disorder--specify (eg. Type 1 Diabetes, PKU): No Muscular Dystrophy: No Neural Tube Defect: No Recurrent Loss or a Stillbirth: No Sickle Cell Disease or Trait: No Kam Sachs: No Teratological Substances (specify type & strength/dose) since LMP: No Thalassemia: No Other Inherited Genetic or Chromosomal Disorder (specify): No No Significant History of Genetic Disorders: No Significant History of Genetic Disorders Labs Labs are pending. Radiology No new radiology. Allergies Rosa has No Known Allergies. Medications Rosa has a current medication list which includes the following prescription(s): norgestimate-ethinyl estradiol. Review of Systems Constitutional: Negative for activity change, appetite change, fatigue, unexpected weight change, weight gain and weight loss. HENT: Negative for sore throat. Eyes: Negative for visual disturbance. Respiratory: Negative for cough and shortness of breath. Breasts: Negative for discharge, mass, pain and unequal size. Cardiovascular: Negative for chest pain, palpitations and leg swelling. Gastrointestinal: Positive for nausea and vomiting. Negative for abdominal pain, anal bleeding, blood in stool, constipation, diarrhea and rectal pain. Genitourinary: Negative for bladder incontinence, dysuria, urgency, flank pain, vaginal bleeding, vaginal discharge, genital sores, vaginal pain and pelvic pain. Skin: Negative for color change and rash. Neurological: Positive for headaches. Negative for dizziness and syncope. Psychiatric/Behavioral: Negative for confusion, self-injury and sleep disturbance. The patient is not nervous/anxious. Hematological: Negative for cold intolerance and heat intolerance. Endocrine: Negative for hair loss, cold intolerance, heat intolerance, weight gain and weight loss. BP 116/61 (BP Location: Right arm, Patient Position: Sitting, BP CUFF SIZE: Adult Medium) | Pulse 68 | Temp 36.8 C (98.2 F) (Oral) | Resp 16 | Ht 5' 4" (1.626 m) | Wt 187 lb 8 oz (85 kg) | LMP 06/12/2019 (Approximate) | BMI 32.18 kg/m Pregravid BMI: 32.1 Physical Exam Vitals reviewed. Constitutional: She is oriented to person, place, and time. She appears well- developed, well-nourished and well-groomed. She has no deformities. Neck: No tenderness and no mass. No thyroid nodules and no thyromegaly palpated. Cardiovascular: Regular rate and rhythm. No murmur auscultated. Pulmonary/Chest: Breath sounds clear to auscultation. Normal inspiratory effort. Abdominal: Abdomen is soft. No mass palpated. No tenderness present. There is no guarding. Neuro/Psychiatric: She has a normal mood and affect. She is oriented to person, place, and time. Skin: Skin normal. No lesion and no rash present. Tattoo present on left wrist Breast: Right breast exhibits no mass, no nipple discharge and no tenderness. Left breast exhibits no mass, no nipple discharge and no tenderness. Normal left breast and normal right breast Rectal: normal rectum External genitalia: Normal external genitalia appropriate for age. Normal hair distribution. No labial lesion. Economics Consultant present for the exam: Manda Sloan RN Vagina:Normal vagina. No lesion inspected. No abnormal vaginal discharge found. Cervix: Normal cervix. No lesion. No tenderness and no discharge present. Closed/50/-3 Uterus: Uterus is normal size and non-tender. 6cm Normal uterus Adnexa: Right adnexa without tenderness or mass. Left adnexa without tenderness or mass. Normal leftadnexa and normal right adnexa Anus/perineum: Normal perineum. PHYSICAL: General Exam: HEENT: Normal Thyroid: Normal Lymph Node: Normal Neurological: Normal Abdomen: Normal Skin: Normal Extremities: Normal Pelvic Exam: Vulva: Normal Vagina: Normal Economics Consultant present for the exam: Manda Sloan RN Cervix: Normal Closed/50/-3 Uterus: 6cm Weeks Adnexa: Normal Spines: Average Sacrum: Concave Subpubic Arch: Normal Assessment/Plan Supervision of high risk , antepartum (primary encounter diagnosis) Previous delivery affecting , antepartum Patient desires vaginal after section () Multiparity Comment: Routine NOB Plan: POCT TEST, POCT URINALYSIS W/O SPECIFIC GRAVITY, GLUCOSE 1 HOUR POST PRANDIAL, CBC WITH DIFF, GC & CHLAMYDIA AMPLIFIED ASSAY, HEPATITIS B SURFACE ANTIGEN, HIV 1/2 AG-AB WITH REFLEX, POCT URINALYSIS W SPECIFIC GRAVITY, WORKUP, BLOOD BANK, RUBELLA SCREEN (VANNESA) IGG, GALV ONLY - SYPHILIS IGG/IGM, URINE CULTURE, VZV ANTIBODY SCREEN Denies zika virus risk, signs and symptoms such as fever,rash,joint pain, conjunctivitis (red eyes), muscle pain, headaches; outside [place] travel to areas affected by zika, and FOB exposure to zika.Educated on use of mosquito repellent. Nausea and vomiting during prior to 22 weeks gestation Generalized headaches Comment: see HPI Plan: OTC medication resource list given Need for prophylactic vaccination and inoculation against influenza Comment: patient desires Plan: FLU VACC([id number]), 6+ MONTHS, IM, QUAD (FLUZONE/FLULAVAL/FLUARIX) Obesity in Comment: BMI: 32.18 Plan: Patient encouraged to limit weight gain and advised to eat healthy diet, fruits, vegetables, increased fiber and water intake and protein low in fat. Encouraged exercise for 30 min everyday; begin regimen with caution to prevent injury. Encouraged to decrease BMI to <25. Return to clinic in 4 weeks. Discussed treatment options. Medications as ordered. Reviewed patient instructions and provided printed copy. This visit did not involve counseling and coordination that comprised more than 50% of the visit time. BARBIE Baxter 07/09/2019 3:07 PM ID INTERN Manda Sloan RN - 07/09/2019 2:00 PM CSTPatient is 24 year old female here for current . Patient is . 1) Previous delivery methods 2) Patient is not experiencing cramping 3) Patient is not experiencing bleeding. 4) LMP 06/12/2019 approximate date 5) Last Pap was: 10/04/2018 Results: Neg HPV: positive 03/02/2016 6) Have you had a flu vaccine this season? No, patient desires vaccine today 7) PPD candidate? no 8) Patient complains of daily headaches. 9) Patient denies history of physical, emotional, or sexual abuse. Patient states she currently feels safe at home. NOB packet given and reviewed with patient. documented in this encounter Plan of Treatment Date Type Specialty Care Team Description 08/06/2019 Routine Visit [facility] Katherine Martins mildredjagdishabhi R, DIETARY DIRECTOR [address] [place], [place] [address] [phone] 10/07/2019 Office Visit [facility] Luis Alberto Carlita Ijeoma, DIETARY DIRECTOR [address] [place] [address] [phone] Marlene Holguin, CNP [address] [place] [address] [phone] Name Type Priority Associated Diagnoses Order S chedule GLUCOSE 1 HOUR POST LAB Routine Supervision of high r isk Expected: 07/09/2019, PRANDIAL , antepartum s: 07/09/2020 CBC WITH DIFF LAB Routine Supervision of high risk Ex pected: 07/09/2019, , antepartum s: 07/09/2020 GC & CHLAMYDIA LAB Routine Supervision of high risk E xpected: 07/09/2019, AMPLIFIED ASSAY , antepartum Exp ires: 07/09/2020 HEPATITIS B SURFACE LAB Routine Supervision of high r isk Expected: 07/09/2019, ANTIGEN , antepartum s: 07/09/2020 HIV 1/2 AG-AB WITH LAB Routine Supervision of high ri sk Ordered: 07/09/2019 REFLEX , antepartum POCT URINALYSIS W LAB Routine Supervision of high ris k 20 Occurrences starting SPECIFIC GRAVITY , antepartum until 05/04/2020 WORKUP, BLOOD LAB Routine Supervision of hig h risk Expected: 07/09/2019, BANK , antepartum s: 07/09/2020 RUBELLA SCREEN (VANNESA) LAB Routine Supervision of hig h risk Expected: 07/09/2019, IGG , antepartum s: 07/09/2020 GALV ONLY - SYPHILIS LAB Routine Supervision of high risk Expected: 07/09/2019, IGG/IGM , antepartum s: 07/09/2020 URINE CULTURE LAB Routine Supervision of high risk Ex pected: 07/09/2019, , antepartum s: 07/09/2020 VZV ANTIBODY SCREEN LAB Routine Supervision of high r isk Expected: 07/09/2019, , antepartum s: 07/09/2020 Health Maintenance Due Date Last Done Comments VARICELLA VACCINES (1 of 2 07/09/2020 Postp oned from - 2-dose childhood series) 07/01 ( or ) PAP SMEAR 10/04/2021 10/04/2018, 03/22/2017, 03/02/2016, Additional history exists DTaP,Tdap,and Td Vaccines 07/14/2025 07/14/2015 (2 - Td) HPV VACCINES Completed 08/31/2016, 03/02/2016, 09/14/2015 INFLUENZA VACCINE Completed 07/09/2019 PNEUMOCOCCAL 0-64 YEARS Aged Out No longe r eligible COMBINED SERIES based on patient 's age to complete this topic documented as of this encounter Procedures Procedure Name Priority Date/Time Associated Diagnosis Comme nts FLU VACC Routine 07/09/2019 2:47 Need for prophylactic ([id number]), 6+ PM UNPAID INTERN vaccination and MONTHS, IM, QUAD inoculation against influenza POCT URINALYSIS W/O Routine 07/09/2019 2:13 Supervision of hi gh Results for this SPECIFIC GRAVITY PM UNPAID INTERN risk , procedur e are in antepartum the results section. POCT TEST Routine 07/09/2019 2:13 Supervision of hi gh Results for this PM UNPAID INTERN risk , procedure ar e in antepartum the results section. documented in this encounter Results POCT URINALYSIS W/O SPECIFIC GRAVITY (07/09/2019 2:13 PM UNPAID INTERN) Pathologist Sig nature POCT PH U 5 5 - 8 mg/dl POCT U LEUK EST Trace Negative - Negative POCT U NIT Neg Negative - Negative POCT U PROT Trace Negative - Negative POCT U GLU Neg Negative - Negative POCT U KETONE None Negative - Negative POCT U BLD Neg Negative - Negative Specimen Urine - URINE, CLEAN CATCH POCT TEST (07/09/2019 2:13 PM UNPAID INTERN) Pathologist Sig nature POCT PREG Positive On board controls acceptable Yes with C Line POCT PREG LOT # POCT PREG TEST DATE Specimen Urine - URINE, CLEAN CATCH documented in this encounter Visit Diagnoses Diagnosis Supervision of high risk , ante - Primary Previous delivery affecting pre gnancy, antepartum Previous delivery, antepartum c ondition or complication Patient desires vaginal after cesa rean section () Multiparity Nausea and vomiting during anaya or to 22 weeks gestation Generalized headaches Headache Need for prophylactic vaccination and in oculation against influenza Obesity in Obesity complicating , childbir th, or the puerperium, unspecified as to episode of care or not applicable documented in this encounter Insurance Payer Benefit Plan / Subscriber ID Effective Phone Address [employer] Dates MEDICAID MEDICAID PENDING [id number] [place] [address] documented as of this encounter Advance Directives Name Relationship Healthcare Agent Relationship Co mmunication Xuan Pillo Mother Primary healthcare agent
--- OUTSIDE RECORDS SUMMARY | 2019-09-06 11:39 | XMS REPORT | Summary of Care ---
:1995 Author Organization [facility] Address [address] [place] [address] Care Team Providers Name Role Phone Carlita Sahu Primary Care Provider Reason for Visit Reason Comments Initial Visit Encounter Details Date Type Department Care Team Description 07/09/2019 Initial [facility] RMP- Arturo Martins upervision of high risk , antepartum (Primary Dx); Visit BARBIE Hernandez Previous delivery affecting pre gnancy, antepartum; [address] [place] [address] Patient desires vaginal yaakov h after section (); [place], [place]; [address] [place], [place] Nausea and vomiting during p regnancy prior to 22 weeks gestation; [phone] Generalized headaches; [phone] Need for prophylactic vaccination and in oculation against influenza; [phone] Obesity in preg john (Fax) Allergies No [...] Comments Blood Pressure 116/61 07/09/2019 2:20 PM EXPLOSIVE ORDNANCE DISPOSAL MANAGER Pulse 68 07/09/2019 2:20 PM EXPLOSIVE ORDNANCE DISPOSAL MANAGER Temperature 36.8 C (98.2 F) 07/09/2019 2:20 PM EXPLOSIVE ORDNANCE DISPOSAL MANAGER Respiratory Rate 16 07/09/2019 2:20 PM EXPLOSIVE ORDNANCE DISPOSAL MANAGER Oxygen Saturation - - Inhaled Oxygen Concentration - - Weight 85 kg (187 lb 8 oz) 07/09/2019 2:20 PM EXPLOSIVE ORDNANCE DISPOSAL MANAGER Height 162.6 cm (5' 4") 07/09/2019 2:20 PM EXPLOSIVE ORDNANCE DISPOSAL MANAGER Body Mass Index 32.18 07/09/2019 2:20 PM EXPLOSIVE ORDNANCE DISPOSAL MANAGER documented in this encounter Progress Notes Arturo Martins, CERTIFIED PHARMACY TECHNICIAN - 07/09/2019 2:00 PM CST Chief complaint: [...] file Gets together: Not on file Attends caodaism service: Not on file Active member of [...] Concern Not on file Social History Narrative Moravian preference none. Patient lives with daughter. No inside pets. Social History Substance and Sexual Activity Sexual Activity Yes Partners: Male Comment: last sexual intercourse 07/08/2019 Genetic Screen Autism / Mental Retardation: No Eric Disease: No Congenital Heart Defect: No Cystic Fibrosis: No Down Syndrome: No Familial Dysautonomia: No Hemophilia or other Blood Disorders: No [place] Chorea: No Maternal Metabolic Disorder--specify (eg. Type [...] age. Normal hair distribution. No labial lesion. Stenciler present for the exam: Manda Sloan RN [...] Normal Pelvic Exam: Vulva: Normal Vagina: Normal Stenciler present for the exam: Manda Sloan RN [...] against influenza Comment: patient desires Plan: FLU VACC([id number]), 6+ MONTHS, IM, QUAD (FLUZONE/FLULAVAL/FLUARIX) Obesity in [...] visit time. BARBIE Baxter 07/09/2019 3:07 PM OSIVE ORDNANCE DISPOSAL MANAGER Manda Sloan RN - 07/09/2019 2:00 PM [...] 08/06/2019 Routine Visit [facility] Satellites Katherine Martins mildredyadirafinn R, CERTIFIED PHARMACY TECHNICIAN [address] [place], [place] [address] [phone] 10/07/2019 Office Visit [facility]ell[facility] Luis Alberto Carlita N, CERTIFIED PHARMACY TECHNICIAN [address] [place] [address] [phone] Marlene Holguin, CNP [address] [place] [address] [phone] Name Type Priority Associated Diagnoses Date/Ti me GLUCOSE 1 HOUR POST LAB Routine Supervision of high r isk 07/09/2019 3:26 PM PRANDIAL , antepartum EXPLOSIVE ORDNANCE DISPOSAL MANAGER CBC WITH DIFF LAB Routine Supervision of high risk 3:26 PM , antepartum EXPLOSIVE ORDNANCE DISPOSAL MANAGER GC & CHLAMYDIA AMPLIFIED LAB Routine Supervision of h igh risk 07/09/2019 3:34 PM ASSAY , antepartum EXPLOSIVE ORDNANCE DISPOSAL MANAGER HEPATITIS B SURFACE LAB Routine Supervision of high r isk 07/09/2019 3:26 PM ANTIGEN , antepartum EXPLOSIVE ORDNANCE DISPOSAL MANAGER HIV 1/2 AG-AB WITH REFLEX LAB Routine Supervision of high risk 07/09/2019 3:26 PM , antepartum EXPLOSIVE ORDNANCE DISPOSAL MANAGER RUBELLA SCREEN (VANNESA) LAB Routine Supervision of [facility] h risk 07/09/2019 3:26 PM IGG , antepartum EXPLOSIVE ORDNANCE DISPOSAL MANAGER GALV ONLY - SYPHILIS LAB Routine Supervision of high risk 07/09/2019 3:26 PM IGG/IGM , antepartum EXPLOSIVE ORDNANCE DISPOSAL MANAGER URINE CULTURE LAB Routine Supervision of high risk 3:34 PM , antepartum EXPLOSIVE ORDNANCE DISPOSAL MANAGER VZV ANTIBODY SCREEN LAB Routine Supervision of high r isk 07/09/2019 3:26 PM , antepartum EXPLOSIVE ORDNANCE DISPOSAL MANAGER CBC WITH DIFFERENTIAL LAB Routine Supervision of high risk 07/09/2019 3:26 PM , antepartum EXPLOSIVE ORDNANCE DISPOSAL MANAGER Name Type Priority Associated Diagnoses Order S [...] Expected: 07/09/2019, ANTIGEN , antepartum s: 07/09/2020 POCT URINALYSIS W LAB Routine Supervision of [...] VACC Routine 07/09/2019 2:47 Need for prophylactic ([id number]), 6+ PM EXPLOSIVE ORDNANCE DISPOSAL MANAGER vaccination and MONTHS, IM, QUAD inoculation against influenza POCT URINALYSIS W/O Routine 07/09/2019 2:13 Supervision of hi gh Results for this SPECIFIC GRAVITY PM EXPLOSIVE ORDNANCE DISPOSAL MANAGER risk , procedur e are in antepartum the results section. POCT TEST Routine 07/09/2019 2:13 Supervision of ms gh Results for this PM EXPLOSIVE ORDNANCE DISPOSAL MANAGER risk , procedure ar e in antepartum the results section. documented in this encounter Results POCT URINALYSIS W/O SPECIFIC GRAVITY (07/09/2019 2:13 PM EXPLOSIVE ORDNANCE DISPOSAL MANAGER) Pathologist Sig nature POCT PH U 5 [...] CLEAN CATCH POCT TEST (07/09/2019 2:13 PM EXPLOSIVE ORDNANCE DISPOSAL MANAGER) Pathologist Sig nature POCT PREG Positive On [...] T ype Group Dates MEDICAID MEDICAID PENDING 2019-[address] [place] [address] documented as of this encounter Advance Directives Name Relationship Healthcare Agent Relationship Co mmunication Xuan Ferro Mother Primary healthcare agent
--- OUTSIDE RECORDS SUMMARY | 2019-09-06 11:39 | XMS REPORT | Summary of Care ---
:1995 Author Organization [facility] Address [address] [place] [address] Care Team Providers Name Role Phone Carlita Sahu Primary Care Provider Encounter Details Date Type Department Care Team Description 07/09/2019 Orders Only [facility] Doctor Unassigned, No [address] [facility] Name [place] [id number] [place] [address] Allergies No Known Allergiesdocumented as of this [...] Care Team Description 08/06/2019 Routine Visit [facility] Katherine Martins, TOLL TEST WORKER [address] [place], [place] [address] [phone] 10/07/2019 Office Visit [facility] Carlita Sahu, TOLL TEST WORKER [address] [place] [address] [phone] Marlene Holguin, CNP [address] [place] [address] [phone] Health Maintenance Due Date Last Done Comments [...] Name Priority Date/Time Associated Diagnosis Comme nts REPORT OF Routine 07/09/2019 12:01 AM PICTURE FRAMER documented in this encounter Results Not on filedocumented in this encounter Insurance Payer Benefit Plan Subscriber ID Effective Phone Address Typ e / Group Dates MEDICAID MEDICAID PENDING 2019-Pre [address] [place] [address] [facility]-R[facility] xxxxxxxxx 2018-Pres [phone] [id number] Medicaid WOMEN ent [address] [place] [address] documented as of this encounter Advance Directives Name Relationship Healthcare Agent Relationship Co mmunication Xuan Ferro Mother Primary healthcare agent
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
[2019-09-06 13:23] LABS: Urine Blood 2+ (NEG); Urine Glucose NEGATIVE (NEG); Urine Protein NEGATIVE (NEG)
[2019-09-06 14:14] LABS: Basophils % 0.5 % (0-1.3); Hematocrit 35.2 % (36.0-45.0); Lymphocytes % 22.3 % (15.3-44.8); MPV 8.6 fL (7.6-11.3); RBC Red Blood Cell Count 3.85 M/uL (3.86-4.86)
[2019-09-06 15:01] LABS: BUN Blood Urea Nitrogen 8 mg/dL (7-18); Bicarbonate 24 mmol/L (21-32); Glucose Level 88 mg/dL (74-106); HCG, Quantitative 16810 mIU/mL (1-3); Potassium 3.7 mmol/L (3.5-5.1); Sodium Level 137 mmol/L (136-145)
--- NOTE | 2019-09-06 16:20 | RAD REPORT ---
EXAM DESCRIPTION: US - OB Limited - 09/06/2019 4:03 pm CLINICAL HISTORY: with vaginal bleeding COMPARISON: None FINDINGS: The uterus measures 10 x 6 x 8 centimeters. A normal appearing gestational sac is present within the endometrium. A pole is present. BPD 2.1 centimeters. Head circumference 18.3 centime ters. The placenta is posterior and low lying. Cardiac activity 157 beats per minute. Cervix 3.5 centimeters Right and left ovaries normal in size and echotexture. The right and left adnexal unremarkable. No si gnificant free fluid. IMPRESSION: Single live intrauterine with an estimated gestational age 13 weeks 3 days RIVAS 03/10/2020 Low lying placenta If a survey is desired it should be performed in approximately 5 weeks
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
--- NOTE | 2019-09-06 16:28 | EDPHYS ---
Physician Documentation [facility] Name: Rosa Rodriguez Age: 24 yrs Sex: Female : 1995 Arrival Date: 09/06/2019 Time: 11:35 Bed 14 Private MD: ED Physician Jeffy Naranjo HPI: 09/05 13:20 This 24 yrs old Female presents to ER via Ambulatory with complaints of kdr Vaginal Bleeding, + Preg <12wks. 13:20 The patient presents to the emergency department with abdominal pain, vaginal bleeding, kdr that is light, described as spotting. The estimated gestational age is 12 weeks. course: care: at a clinic, Leakage of Fluid: yes, a moderate amount, Risk/complications: no obvious risks or complications are appreciated. Previous pregnancies: in previous pregnancies patient has had , no complications. Associated signs and symptoms: Pertinent positives: abdominal pain, left flank/CVA pain, Pertinent negatives: diarrhea, dysuria, fever, frequency, nausea, ruptured membranes, seizure, shortness of breath, vaginal bleeding, vaginal discharge. The patient has not experienced similar symptoms in the past. The patient has not recently seen a physician. No recent coitus. [employer]: 11:52 2, Full Term 1, Living 1, LMP 05/2019 hb 13:20 2, Full Term 1, Premature 0, 0, Living 1 kdr Historical: - Allergies: 11:52 No Known Allergies; hb - Home Meds: 11:52 Vitamin Oral [Active]; hb - PMHx: 11:52 None; hb - PSHx: 11:52 ; hb - Immunization history:: Adult Immunizations up to date. - Social history:: Smoking status: Patient denies any tobacco usage or history of. ROS: 13:20 Constitutional: Negative for fever, chills, and weight loss, Eyes: Negative for injury, kdr pain, redness, and discharge, ENT: Negative for injury, pain, and discharge, Neck: Negative for injury, pain, and swelling, Cardiovascular: Negative for chest pain, palpitations, and edema, Respiratory: Negative for shortness of breath, cough, wheezing, and pleuritic chest pain, MS/Extremity: Negative for injury and deformity, Skin: Negative for injury, rash, and discoloration, Neuro: Negative for headache, weakness, numbness, tingling, and seizure activity. Psych: Negative for depression, anxiety, suicide ideation, homicidal ideation, and hallucinations, Allergy/Immunology: Negative for hives, rash, and allergies, Endocrine: Negative for neck swelling, polydipsia, polyuria, polyphagia, and marked weight changes, Hematologic/Lymphatic: Negative for swollen nodes, abnormal bleeding, and unusual bruising. 13:20 Abdomen/GI: Positive for abdominal pain, Left flank/CVA tenderness, Negative for nausea, vomiting, and diarrhea, constipation, abdominal distension, anorexia, dysphagia, hematemesis, black/tarry stool, rectal pain, rectal bleeding. 13:20 : Positive for vaginal bleeding, vaginal discharge, Gush of fluid x 2 last night - then has had one pad on today. Exam: 13:20 Constitutional: This is a well developed, well nourished patient who is awake, alert, kdr and in no acute distress. Head/Face: Normocephalic, atraumatic. Eyes: Pupils equal round and reactive to light, extra-ocular motions intact. Lids and lashes normal. Conjunctiva and sclera are non-icteric and not injected. Cornea within normal limits. Periorbital areas with no swelling, redness, or edema. Neck: Trachea midline, no thyromegaly or masses palpated, and no cervical lymphadenopathy. Supple, full range of motion without nuchal rigidity, or vertebral point tenderness. No Meningismus. Chest/axilla: Normal chest wall appearance and motion. Nontender with no deformity. No lesions are appreciated. Cardiovascular: Regular rate and rhythm with a normal S1 and S2. No gallops, murmurs, or rubs. Normal PMI, no JVD. No pulse deficits. Respiratory: Lungs have equal breath sounds bilaterally, clear to auscultation and percussion. No rales, rhonchi or wheezes noted. No increased work of breathing, no retractions or nasal flaring. Skin: Warm, dry with normal turgor. Normal color with no rashes, no lesions, and no evidence of cellulitis. MS/ Extremity: Pulses equal, no cyanosis. Neurovascular intact. Full, normal range of motion. Neuro: Awake and alert, GCS 15, oriented to person, place, time, and situation. Cranial nerves II-XII grossly intact. Motor strength 5/5 in all extremities. Sensory grossly intact. Cerebellar exam normal. Normal gait. Psych: Awake, alert, with orientation to person, place and time. Behavior, mood, and affect are within normal limits. 13:20 Abdomen/GI: Inspection: abdomen appears normal, Bowel sounds: active, all quadrants, Palpation: soft, mild abdominal tenderness, in the posterior aspect of left lateral abdomen, left upper quadrant and left lower quadrant. Vital Signs: 11:49 BP 112 / 65; Pulse 68; Resp 16; Temp 97.8; Pulse Ox 100% on R/A; Weight 83.91 kg; hb Height 5 ft. 5 in. (165.10 cm); Pain 6/10; 13:00 BP 116 / 71; Pulse 61; Resp 14; Pulse Ox 99% on R/A; Pain 0/10; ls4 14:00 BP 110 / 71; Pulse 62; Resp 14; Pulse Ox 100% on R/A; Pain 0/10; ls4 15:00 BP 114 / 57; Pulse 62; Resp 14; Pulse Ox 100% on R/A; Pain 0/10; ls4 16:30 BP 110 / 65; Pulse 64; Resp 14; Pulse Ox 99% on R/A; Pain 3/10; ls4 11:49 Body Mass Index 30.79 (83.91 kg, 165.10 cm) hb MDM: 13:20 Data reviewed: vital signs, nurses notes, old medical records, radiologic studies. kdr Counseling: I had a detailed discussion with the patient and/or guardian regarding: the historical points, exam findings, and any diagnostic results supporting the discharge/admit diagnosis, lab results, radiology results. 16:27 Patient medically screened. kdr 09/05 13:04 Order name: Quantitative Hcg; Complete Time: 15:20 kdr 09/05 13:04 Order name: Abo/rh Typing; Complete Time: 15:20 kdr 09/05 13:04 Order name: Basic Metabolic Panel; Complete Time: 15:20 kdr 09/05 13:04 Order name: CBC with Diff; Complete Time: 15:20 kdr 09/05 13:08 Order name: Urine Dipstick--Ancillary (enter results); Complete Time: 13:46 eb 09/05 13:08 Order name: Urine --Ancillary (enter results); Complete Time: 13:46 eb 09/05 13:04 Order name: IV Saline Lock; Complete Time: 14:06 kdr 09/05 13:04 Order name: Labs collected and sent; Complete Time: 14:06 kdr 09/05 13:04 Order name: NPO; Complete Time: 14:06 kdr 09/05 13:04 Order name: Urine Dipstick-Ancillary (obtain specimen); Complete Time: 14:07 kdr 09/05 15:21 Order name: US OB Limited; Complete Time: 16:26 kdr Administered Medications: No medications were administered Point of Care Testing: Urine : 13:10 hCG Reading: Positive; Control Reading: Positive; ls4 Disposition: 09/06/19 16:27 Discharged to Home. Impression: Threatened . - Condition is Stable. - Discharge Instructions: Threatened Miscarriage, Pelvic Rest. - Medication Reconciliation Form, Thank You Letter form. - Follow up: Private Physician; When: 48 Hours; Reason: If symptoms return, Further diagnostic work-up, Recheck today's complaints, Continuance of care, Re-evaluation by your physician. - Problem is new. - Symptoms have improved. Signatures: Dispatcher [employer] EDPR Jeffy Naranjo MD MD kdr Heidi Moreau RN RN Kiera Beltran RN RN ls4 Corrections: (The following items were deleted from the chart) 16:47 16:27 09/06/2019 16:27 Discharged to Home. Impression: Threatened . Condition ls4 is Stable. Forms are Medication Reconciliation Form, Thank You Letter, Antibiotic Education, Prescription Opioid Use. Follow up: Private Physician; When: 48 Hours; Reason: If symptoms return, Further diagnostic work-up, Recheck today's complaints, Continuance of care, Re-evaluation by your physician. Problem is new. Symptoms have improved. kdr
[2019-09-06 17:03] VITALS: TEMP 97.8
[2019-09-06 17:14] VITALS: BP 110/65; O2SAT 99
== END 2019-09-06 16:47 | disposition home or self-care (01) ==
LOC: ER 11:34
DX: O20.0 Threatened abortion (principal); Z3A.12 12 weeks gestation of pregnancy
CPT/HCPCS: 36415; 76815; 80048; 81003; 81025; 84702; 85025; 86900; 86901; 99284

== ENCOUNTER 2022-02-11 14:34 | Emergency (ER) | payer OTHER ==
--- OUTSIDE RECORDS SUMMARY | 2022-02-11 14:40 | XMS REPORT | Continuity of Care Document ---
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 Kit 00:00: [place] 00 [facility] proMETHazin 2020-0 Yes [id number] 25mg Take 1 Univers e 25 mg 3-31 tablet by ity of tablet 00:00: mouth [place] 00 every 4 Medical (four) Branch hours as needed for Nausea and Vomiting (N/V). 2019-0 Yes [id number] 1{packe Take 1 Univers vit 3-31 t} Packet by ity of 33-iron-fol 00:00: mouth [place] ic-dha 00 daily. Medical ([facility] + DHA) 29 mg iron-1 mg -250 mg combo pack Blood 2020-0 Yes [id number] Use as Univer s Pressure 3-31 directed ity of Monitor Kit 00:00: [place] 00 [facility] proMETHazin 2020-0 Yes [id number] 25mg Take 1 Univers e 25 mg 3-31 tablet by ity of tablet 00:00: mouth [place] 00 every 4 Medical (four) Branch hours as needed for Nausea and Vomiting (N/V). 2019-0 Yes [id number] 1{packe Take 1 Univers vit 3-31 t} Packet by ity of 33-iron-fol 00:00: mouth [place] ic-dha 00 daily. Medical (SELECT-[facility] Branch + DHA) 29 mg iron-1 mg -250 mg combo pack Blood 2020-0 Yes [id number] Use as Univer s Pressure 3-31 directed ity of Monitor Kit 00:00: [place] 00 [facility] Branch proMETHazin 2020-0 Yes [id number] 25mg Take 1 Univers e 25 mg 3-31 tablet by ity of tablet 00:00: mouth [place] 00 every 4 Medical (four) Branch hours as needed for Nausea and Vomiting (N/V). 2020-0 Yes [id number] 1{packe Take 1 Univers vit 3-31 t} Packet by ity of 33-iron-fol 00:00: mouth [place] ic-dha 00 daily. Medical (SELECT-[facility] Branch + DHA) 29 mg iron-1 mg -250 mg combo pack Blood 2020-0 Yes [id number] Use as Univer s Pressure 3-31 directed ity of Monitor Kit 00:00: [place] 00 [facility] proMETHazin 2020-0 Yes [id number] 25mg Take 1 Univers e 25 mg 3-31 tablet by ity of tablet 00:00: mouth [place] 00 every 4 Medical (four) Branch hours as needed for Nausea and Vomiting (N/V). 2020-0 Yes [id number] 1{packe Take 1 Univers vit 3-31 t} Packet by ity of 33-iron-fol 00:00: mouth [place] ic-dha 00 daily. Medical (SELECT[facility] Branch + DHA) 29 mg iron-1 mg -250 mg combo pack Blood 2020-0 Yes [id number] Use as Univer s Pressure 3-31 directed ity of Monitor Kit 00:00: [place] 00 [facility] 2020-0 Yes [id number] 1{packe Take 1 Univers vit 3-31 t} Packet by ity of 33-iron-fol 00:00: mouth [place] ic-dha 00 daily. Medical ([facility] Branch + DHA) 29 mg iron-1 mg -250 mg combo pack Blood 2020-0 Yes [id number] Use as Univer s Pressure 3-31 directed ity of Monitor Kit 00:00: [place] 00 [facility] 2020-0 Yes [id number] 1{packe Take 1 Univers vit 3-31 t} Packet by ity of 33-iron-fol 00:00: mouth [place] ic-dha 00 daily. Medical (SELECT-[facility] Branch + DHA) 29 mg iron-1 mg -250 mg combo pack Blood 2020-0 Yes [id number] Use as Univer s Pressure 3-31 directed ity of Monitor Kit 00:00: [place] 00 [facility] 2020-0 Yes [id number] 1{packe Take 1 Univers vit 3-31 t} Packet by ity of 33-iron-fol 00:00: mouth [place] ic-dha 00 daily. Medical (SELECT-[facility] Branch + DHA) 29 mg iron-1 mg -250 mg combo pack Blood 2020-0 Yes [id number] Use as Univer s Pressure 3-31 directed ity of Monitor Kit 00:00: [place] 00 [facility] 2020-0 Yes [id number] 1{packe Take 1 Univers vit 3-31 t} Packet by ity of 33-iron-fol 00:00: mouth [place] ic-dha 00 daily. Medical ([facility] Branch + DHA) 29 mg iron-1 mg -250 mg combo pack Blood 2020-0 Yes [id number] Use as Univer s Pressure 3-31 directed ity of Monitor Kit 00:00: [place] 00 [facility] 2020-0 Yes [id number] 1{packe Take 1 Univers vit 3-31 t} Packet by ity of 33-iron-fol 00:00: mouth [place] ic-dha 00 daily. Medical (SELECT-[facility] Branch + DHA) 29 mg iron-1 mg -250 mg combo pack Blood 2020-0 Yes [id number] Use as Univer s Pressure 3-31 directed ity of Monitor Kit 00:00: [place] 00 [facility] 2020-0 2021- No [id number] 1{packe Take 1 Univers vit 3-31 04-13 t} Packet by ity of 33-iron-fol 00:00: 00:[place] :00 daily. Medical ([facility] Branch + DHA) 29 mg iron-1 mg -250 mg combo pack Blood 2020-0 2021- No [id number] Use as Unive rs Pressure 3-31 04-13 directed ity of Monitor Kit 00:00: 00:00 [place] 00 :00 [facility] 2020-0 2021- No [id number] 1{packe Take 1 Univers vit 3-31 04-13 t} Packet by ity of 33-iron-fol 00:00: 00:00 [place] :00 daily. Medical (SELECT-[facility] Branch + DHA) 29 mg iron-1 mg -250 mg combo pack Blood 2020- No [id number] Use as Unive rs Pressure 3-31 04-13 directed ity of Monitor Kit 00:00: 00:00 [place] 00 :00 Medical Branch proMETHazin 2020- No [id number] 25mg Take 1 Univers e 25 mg 3-31 10-09 tablet by ity of tablet 00:00: 00:00 mouth [place] 00 :00 every 4 Medical (four) Branch hours as needed for Nausea and Vomiting (N/V). norgestimat Yes [id number] 1{tbl} Take 1 Univers e-ethinyl 9-20 tablet by ity o f estradiol 00:00: mouth [place] (ORTHO 00 daily. Medical [facility], [place] 28,) 0.18/0.215/ 0.25 mg-35 mcg (28) tablet norgestimat Yes [id number] 1{tbl} Take 1 Univers e-ethinyl 9-20 tablet by ity o f estradiol 00:00: mouth [place] (ORTHO 00 daily. Medical [facility], Branch 28,) 0.18/0.215/ 0.25 mg-35 mcg (28) tablet norgestimat Yes [id number] 1{tbl} Take 1 Univers e-ethinyl 9-20 tablet by ity o f estradiol 00:00: mouth [place] (ORTHO 00 daily. [facility], Branch 28,) 0.18/0.215/ 0.25 mg-35 mcg (28) tablet norgestimat Yes [id number] 1{tbl} Take 1 Univers e-ethinyl 9-20 tablet by ity o f estradiol 00:00: mouth [place] (ORTHO 00 daily. Medical [facility], [place] 28,) 0.18/0.215/ 0.25 mg-35 mcg (28) tablet norgestimat 2020- No [id number] 1{tbl} Take 1 Univers e-ethinyl 9-20 03-31 tablet by ity of estradiol 00:00: 00:00 mouth [place] (ORTHO 00 :00 [facility]. [facility] [place] [address] 0.18/0.215/ 0.25 mg-35 mcg (28) tablet norgestimat 2019- Yes [id number] 1{tbl} Take 1 Univers e-ethinyl 5-16 tablet by ity o f estradiol 00:00: mouth [place] (ORTHO 00 daily. [place] [address],) 0.18/0.215/ 0.25 mg-35 mcg (28) tablet norgestimat 2019-0 Yes [id number] 1{tbl} Take 1 Univers e-ethinyl 5-16 tablet by ity o f estradiol 00:00: mouth [place] (ORTHO 00 daily. [place] [address],) 0.18/0.215/ 0.25 mg-35 mcg (28) tablet norgestimat Yes [id number] 1{tbl} Take 1 Univers e-ethinyl 5-16 tablet by ity o f estradiol 00:00: mouth [place] (ORTHO 00 daily. [place] [address],) 0.18/0.215/ 0.25 mg-35 mcg (28) tablet norgestimat Yes [id number] 1{tbl} Take 1 Univers e-ethinyl 5-16 tablet by ity o f estradiol 00:00: mouth [place] (ORTHO 00 daily. [place] [address],) 0.18/0.215/ 0.25 mg-35 mcg (28) tablet norgestimat 2019- No [id number] 1{tbl} Take 1 Univers e-ethinyl 5-16 09-20 tablet by ity of estradiol 00:00: 00:00 mouth [place] (ORTHO 00 :00 daily. [place] [address],) 0.18/0.215/ 0.25 mg-35 mcg (28) tablet Immunizations Ordered Filled Immunization Date Status Comments [facility] e Immunization Name Name TDAP 2020-01-22 Completed University of 00:00:00 [facility] TDAP 2020-01-22 Completed University of 00:00:00 [facility] TDAP 2020-01-22 Completed University of 00:00:00 [facility] TDAP 2020-01-22 Completed University of 00:00:00 [facility] TDAP 2020-01-22 Completed University of 00:00:00 [facility] TDAP 2020-01-22 Completed University of 00:00:00 [place] [facility] TDAP 2020-01-22 Completed University of 00:00:00 [place] [facility] TDAP 2020-01-22 Completed University of 00:00:00 [place] [facility] TDAP 2020-01-22 Completed University of 00:00:00 [place] [facility] TDAP 2020-01-22 Completed University of 00:00:00 [place] [facility] TDAP 2020-01-22 Completed University of 00:00:00 [place] [facility] TDAP 2020-01-22 Completed University of 00:00:00 [place] [facility] TDAP 2020-01-22 Completed University of 00:00:00 [place] [facility] TDAP 2020-01-22 Completed University of 00:00:00 [place] [facility] TDAP 2020-01-22 Completed University of 00:00:00 [place] [facility] TDAP 2020-01-22 Completed University of 00:00:00 [place] [facility] TDAP 2020-01-22 Completed University of 00:00:00 [place] [facility] TDAP 2020-01-22 Completed University of 00:00:00 [facility] Influenza Virus 2019-07-09 Completed Universit y of Vaccine Quad .5 mL 00:00:00 [place] [facility] IM 6+ MO Branch Influenza Virus 2019-07-09 Completed Universit y of Vaccine Quad .5 mL 00:00:00 [place] [facility] IM 6+ MO Branch Influenza Virus 2019-07-09 Completed Universit y of Vaccine Quad .5 mL 00:00:00 [place] [facility] IM 6+ MO Branch Influenza Virus 2019-07-09 Completed Universit y of Vaccine Quad .5 mL 00:00:00 [place] [facility] IM 6+ MO Branch Influenza Virus 2019-07-09 Completed Universit y of Vaccine Quad .5 mL 00:00:00 [place] [facility] IM 6+ MO Branch Influenza Virus 2019-07-09 Completed Universit y of Vaccine Quad .5 mL 00:00:00 [place] [facility] IM 6+ MO Branch Influenza Virus 2019-07-09 Completed Universit y of Vaccine Quad .5 mL 00:00:00 [place] [facility] IM 6+ MO Branch Influenza Virus 2019-07-09 Completed Universit y of Vaccine Quad .5 mL 00:00:00 [place] [facility] IM 6+ MO Branch Influenza Virus 2019-07-09 Completed Universit y of Vaccine Quad .5 mL 00:00:00 [place] [facility] IM 6+ MO Branch Influenza Virus 2019-07-09 Completed Universit y of Vaccine Quad .5 mL 00:00:00 [place] [facility] IM 6+ MO Branch Influenza Virus 2019-07-09 Completed Universit y of Vaccine Quad .5 mL 00:00:00 [place] [facility] IM 6+ MO Branch Influenza Virus 2019-07-09 Completed Universit y of Vaccine Quad .5 mL 00:00:00 [place] [facility] IM 6+ MO Branch Influenza Virus 2019-07-09 Completed Universit y of Vaccine Quad .5 mL 00:00:00 [place] [facility] IM 6+ MO Branch Influenza Virus 2019-07-09 Completed Universit y of Vaccine Quad .5 mL 00:00:00 [place] [facility] IM 6+ MO Branch Influenza Virus 2019-07-09 Completed Universit y of Vaccine Quad .5 mL 00:00:00 [place] [facility] IM 6+ MO Branch Influenza Virus 2019-07-09 Completed Universit y of Vaccine Quad .5 mL 00:00:00 [place] [facility] IM 6+ MO Branch Influenza Virus 2019-07-09 Completed Universit y of Vaccine Quad .5 mL 00:00:00 [place] [facility] IM 6+ MO Branch Influenza Virus 2019-07-09 Completed Universit y of Vaccine Quad .5 mL 00:00:00 [place] [facility] IM 6+ MO Branch Influenza Virus 2019-07-09 Completed Universit y of Vaccine Quad .5 mL 00:00:00 [place] [facility] IM 6+ MO Branch Influenza Virus 2019-07-09 Completed Universit y of Vaccine Quad .5 mL 00:00:00 [place] [facility] IM 6+ MO Branch Influenza Virus 2019-07-09 Completed Universit y of Vaccine Quad .5 mL 00:00:00 [place] [facility] IM 6+ MO Branch Influenza Virus 2019-07-09 Completed Universit y of Vaccine Quad .5 mL 00:00:00 [place] [facility] IM 6+ MO Branch Influenza Virus 2019-07-09 Completed Universit y of Vaccine Quad .5 mL 00:00:00 [place] [facility] IM 6+ MO Branch Influenza Virus 2019-07-09 Completed Universit y of Vaccine Quad .5 mL 00:00:00 [place] [facility] IM 6+ MO Branch Influenza Virus 2019-07-09 Completed Universit y of Vaccine Quad .5 mL 00:00:00 [place] [facility] IM 6+ MO Branch Influenza Virus 2019-07-09 Completed Universit y of Vaccine Quad .5 mL 00:00:00 [place] [facility] IM 6+ MO Branch Influenza Virus 2019-07-09 Completed Universit y of Vaccine Quad .5 mL 00:00:00 [place] [facility] IM 6+ MO Branch Influenza Virus 2019-07-09 Completed Universit y of Vaccine Quad .5 mL 00:00:00 [place] [facility] IM 6+ MO Branch Influenza Virus 2019-07-09 Completed Universit y of Vaccine Quad .5 mL 00:00:00 [facility] IM 6+ MO Branch HPV9 2016-08-31 Completed University of 00:00:00 [facility] Branch HPV9 2016-08-31 Completed University of 00:00:00 [facility] Branch HPV9 2016-08-31 Completed University of 00:00:00 [facility] Branch HPV9 2016-08-31 Completed University of 00:00:00 [facility] HPV9 2016-08-31 Completed University of 00:00:00 [facility] HPV9 2016-08-31 Completed University of 00:00:00 [facility] HPV9 2016-08-31 Completed University of 00:00:00 [facility] HPV9 2016-08-31 Completed University of 00:00:00 [facility] HPV9 2016-08-31 Completed University of 00:00:00 [facility] HPV9 2016-08-31 Completed University of 00:00:00 [facility] HPV9 2016-08-31 Completed University of 00:00:00 [facility] HPV9 2016-08-31 Completed University of 00:00:00 [facility] HPV9 2016-08-31 Completed University of 00:00:00 [facility] HPV9 2016-08-31 Completed University of 00:00:00 [facility] HPV9 2016-08-31 Completed University of 00:00:00 [facility] HPV9 2016-08-31 Completed University of 00:00:00 [facility] HPV9 2016-08-31 Completed University of 00:00:00 [facility] HPV9 2016-08-31 Completed University of 00:00:00 [facility] HPV9 2016-08-31 Completed University of 00:00:00 [facility] HPV9 2016-08-31 Completed University of 00:00:00 [facility] HPV9 2016-08-31 Completed University of 00:00:00 [facility] HPV9 2016-08-31 Completed University of 00:00:00 [facility] HPV9 2016-08-31 Completed University of 00:00:00 [facility] HPV9 2016-08-31 Completed University of 00:00:00 [place] [facility] HPV9 2016-08-31 Completed University of 00:00:00 [place] [facility] HPV9 2016-08-31 Completed University of 00:00:00 [place] [facility] HPV9 2016-08-31 Completed University of 00:00:00 [place] [facility] HPV9 2016-08-31 Completed University of 00:00:00 [place] [facility] HPV9 2016-08-31 Completed University of 00:00:00 [place] [facility] HPV9 2016-08-31 Completed University of 00:00:00 [place] [facility] HPV9 2016-08-31 Completed University of 00:00:00 [place] [facility] HPV9 2016-08-31 Completed University of 00:00:00 [place] [facility] HPV9 2016-08-31 Completed University of 00:00:00 [place] [facility] HPV9 2016-08-31 Completed University of 00:00:00 [place] [facility] HPV 2016-03-02 Completed University of 00:00:00 [place] [facility] HPV 2016-03-02 Completed University of 00:00:00 [place] [facility] HPV 2016-03-02 Completed University of 00:00:00 [place] [facility] HPV 2016-03-02 Completed University of 00:00:00 [place] [facility] HPV 2016-03-02 Completed University of 00:00:00 [place] [facility] HPV 2016-03-02 Completed University of 00:00:00 [place] [facility] HPV 2016-03-02 Completed University of 00:00:00 [place] [facility] HPV 2016-03-02 Completed University of 00:00:00 [place] [facility] HPV 2016-03-02 Completed University of 00:00:00 [place] [facility] HPV 2016-03-02 Completed University of 00:00:00 [place] [facility] HPV 2016-03-02 Completed University of 00:00:00 [place] [facility] HPV 2016-03-02 Completed University of 00:00:00 [place] [facility] HPV 2016-03-02 Completed University of 00:00:00 [place] [facility] HPV 2016-03-02 Completed University of 00:00:00 [place] [facility] HPV 2016-03-02 Completed University of 00:00:00 [place] [facility] HPV 2016-03-02 Completed University of 00:00:00 [place] [facility] HPV 2016-03-02 Completed University of 00:00:00 [place] [facility] HPV 2016-03-02 Completed University of 00:00:00 [place] [facility] HPV 2016-03-02 Completed University of 00:00:00 [place] [facility] HPV 2016-03-02 Completed University of 00:00:00 [place] [facility] HPV 2016-03-02 Completed University of 00:00:00 [place] [facility] HPV 2016-03-02 Completed University of 00:00:00 [place] [facility] HPV 2016-03-02 Completed University of 00:00:00 [place] [facility] HPV 2016-03-02 Completed University of 00:00:00 [place] [facility] HPV 2016-03-02 Completed University of 00:00:00 [place] [facility] HPV 2016-03-02 Completed University of 00:00:00 [place] [facility] HPV 2016-03-02 Completed University of 00:00:00 [place] [facility] HPV 2016-03-02 Completed University of 00:00:00 [place] [facility] HPV 2016-03-02 Completed University of 00:00:00 [place] [facility] HPV 2016-03-02 Completed University of 00:00:00 [place] [facility] HPV 2016-03-02 Completed University of 00:00:00 [place] [facility] HPV 2016-03-02 Completed University of 00:00:00 [place] [facility] HPV 2016-03-02 Completed University of 00:00:00 [place] [facility] HPV 2016-03-02 Completed University of 00:00:00 [place] [facility] HPV9 2015-09-14 Completed University of 00:00:00 [place] [facility] HPV9 2015-09-14 Completed University of 00:00:00 [place] [facility] HPV9 2015-09-14 Completed University of 00:00:00 [place] [facility] HPV9 2015-09-14 Completed University of 00:00:00 [place] [facility] HPV9 2015-09-14 Completed University of 00:00:00 [place] [facility] HPV9 2015-09-14 Completed University of 00:00:00 [place] [facility] HPV9 2015-09-14 Completed University of 00:00:00 [place] [facility] HPV9 2015-09-14 Completed University of 00:00:00 [place] [facility] HPV9 2015-09-14 Completed University of 00:00:00 [place] [facility] HPV9 2015-09-14 Completed University of 00:00:00 [place] [facility] HPV9 2015-09-14 Completed University of 00:00:00 [place] [facility] HPV9 2015-09-14 Completed University of 00:00:00 [place] [facility] HPV9 2015-09-14 Completed University of 00:00:00 [place] [facility] HPV9 2015-09-14 Completed University of 00:00:00 [place] [facility] HPV9 2015-09-14 Completed University of 00:00:00 [place] [facility] HPV9 2015-09-14 Completed University of 00:00:00 [place] [facility] HPV9 2015-09-14 Completed University of 00:00:00 [facility] HPV9 2015-09-14 Completed University of 00:00:00 [place] [facility] HPV9 2015-09-14 Completed University of 00:00:00 [place] [facility] HPV9 2015-09-14 Completed University of 00:00:00 [place] [facility] HPV9 2015-09-14 Completed University of 00:00:00 [place] [facility] HPV9 2015-09-14 Completed University of 00:00:00 [place] [facility] HPV9 2015-09-14 Completed University of 00:00:00 [place] [facility] HPV9 2015-09-14 Completed University of 00:00:00 [facility] HPV9 2015-09-14 Completed University of 00:00:00 [facility] HPV9 2015-09-14 Completed University of 00:00:00 [facility] HPV9 2015-09-14 Completed University of 00:00:00 [facility] HPV9 2015-09-14 Completed University of 00:00:00 [facility] HPV9 2015-09-14 Completed University of 00:00:00 [facility] HPV9 2015-09-14 Completed University of 00:00:00 [facility] HPV9 2015-09-14 Completed University of 00:00:00 [facility] HPV9 2015-09-14 Completed University of 00:00:00 [facility] HPV9 2015-09-14 Completed University of 00:00:00 [facility] HPV9 2015-09-14 Completed University of 00:00:00 [facility] Tdap 2015-07-14 Completed University of 00:00:00 [facility] Tdap 2015-07-14 Completed University of 00:00:00 [facility] Tdap 2015-07-14 Completed University of 00:00:00 [place] [facility] Tdap 2015-07-14 Completed University of 00:00:00 [facility] Tdap 2015-07-14 Completed University of 00:00:00 [facility] Tdap 2015-07-14 Completed University of 00:00:00 [place] [facility] Tdap 2015-07-14 Completed University of 00:00:00 [facility] Tdap 2015-07-14 Completed University of 00:00:00 [facility] Tdap 2015-07-14 Completed University of 00:00:00 [facility] Tdap 2015-07-14 Completed University of 00:00:00 [place] [facility] TDAP 2015-07-14 Completed University of 00:00:00 [facility] TDAP 2015-07-14 Completed University of 00:00:00 [facility] TDAP 2015-07-14 Completed University of 00:00:00 [facility] TDAP 2015-07-14 Completed University of 00:00:00 [facility] Tdap 2015-07-14 Completed University of 00:00:00 [facility] TDAP 2015-07-14 Completed University of 00:00:00 [facility] TDAP 2015-07-14 Completed University of 00:00:00 [facility] TDAP 2015-07-14 Completed University of 00:00:00 [facility] TDAP 2015-07-14 Completed University of 00:00:00 [facility] TDAP 2015-07-14 Completed University of 00:00:00 [facility] TDAP 2015-07-14 Completed University of 00:00:00 [facility] TDAP 2015-07-14 Completed University of 00:00:00 [facility] Tdap 2015-07-14 Completed University of 00:00:00 [facility] TDAP 2015-07-14 Completed University of 00:00:00 [facility] TDAP 2015-07-14 Completed University of 00:00:00 [facility] TDAP 2015-07-14 Completed University of 00:00:00 [facility] TDAP 2015-07-14 Completed University of 00:00:00 [facility] TDAP 2015-07-14 Completed University of 00:00:00 [facility] TDAP 2015-07-14 Completed University of 00:00:00 [facility] Tdap 2015-07-14 Completed University of 00:00:00 [facility] TDAP 2015-07-14 Completed University of 00:00:00 [facility] TDAP 2015-07-14 Completed University of 00:00:00 [facility] Tdap 2015-07-14 Completed University of 00:00:00 [facility] Tdap 2015-07-14 Completed University of 00:00:00 [facility] Vital Signs Vital Name Observation Time Observation Value Comments Source Systolic blood 2020-09-01 19:11:00 125 mm[Hg] Univer sity of pressure [place] [facility] Diastolic blood 2020-09-01 19:11:00 58 mm[Hg] Unive rsity of pressure [place] [facility] Heart rate 2020-09-01 19:11:00 98 /min [facility] [place] [facility] Body temperature 2020-09-01 19:11:00 35.67 [facility] [place] [facility] Respiratory rate 2020-09-01 19:11:00 16 /min Univ ersity of [place] [facility] Body height 2020-09-01 19:11:00 162.6 cm [facility] [place] [facility] Body weight 2020-09-01 19:11:00 95.964 kg [facility] [place] [facility] BMI 2020-09-01 19:11:00 36.31 kg/m2 [facility] [place] [facility] Systolic blood 2020-03-04 14:37:00 118 mm[Hg] Univer sity of pressure [place] [facility] Diastolic blood 2020-03-04 14:37:00 70 mm[Hg] Unive rsity of pressure [place] [facility] Heart rate 2020-03-04 14:37:00 70 /min [facility] [place] [facility] Body temperature 2020-03-04 14:37:00 36.78 [facility] [place] [facility] Respiratory rate 2020-03-04 14:37:00 16 /min Univ ersity of [place] [facility] Body height 2020-03-04 14:37:00 165.1 cm [facility] [place] [facility] Body weight 2020-03-04 14:37:00 92.534 kg [facility] [place] [facility] BMI 2020-03-04 14:37:00 33.95 kg/m2 [facility] [place] [facility] Systolic blood 2020-02-29 12:56:00 118 mm[Hg] Univer sity of pressure [place] [facility] Diastolic blood 2020-02-29 12:56:00 77 mm[Hg] Unive rsity of pressure [place] [facility] Heart rate 2020-02-29 12:56:00 60 /min [facility] [place] [facility] Body temperature 2020-02-29 12:56:00 36 [facility] [place] [facility] Respiratory rate 2020-02-29 12:56:00 18 /min Univ ersity of [place] [facility] Oxygen saturation in 2020-02-29 12:56:00 99 /min University of Arterial blood by [facility] Pulse oximetry [place] Body height 2020-02-26 12:48:00 165.1 cm [facility] Body weight 2020-02-26 12:48:00 97.977 kg [facility] BMI 2020-02-26 12:48:00 35.94 kg/m2 [facility] Systolic blood 2020-02-25 17:59:00 128 mm[Hg] Univer sity of pressure [facility] Diastolic blood 2020-02-25 17:59:00 74 mm[Hg] Unive rsity of pressure [facility] Heart rate 2020-02-25 17:59:00 78 /min [facility] Body temperature 2020-02-25 17:59:00 36.56 Kelley Univ ers[facility] Respiratory rate 2020-02-25 17:59:00 16 /min Univ ersity of [facility] Body height 2020-02-25 17:59:00 165.1 cm [facility] [place] Body weight 2020-02-25 17:59:00 98.294 kg [facility] BMI 2020-02-25 17:59:00 36.06 kg/m2 [facility] Systolic blood 2020-02-10 20:24:00 123 mm[Hg] Univer sity of pressure [facility] Diastolic blood 2020-02-10 20:24:00 70 mm[Hg] Unive rsity of pressure [facility] Heart rate 2020-02-10 20:24:00 79 /min [facility] Body temperature 2020-02-10 20:24:00 36.83 Kelley Univ ers[facility] Respiratory rate 2020-02-10 20:24:00 16 /min Univ ersity of [facility] Body height 2020-02-10 20:24:00 165.1 cm [facility] [place] Body weight 2020-02-10 20:24:00 97.478 kg [facility] [place] BMI 2020-02-10 20:24:00 35.76 kg/m2 [facility] Systolic blood 2020-01-22 15:30:00 121 mm[Hg] Univer sity of [facility] Diastolic blood 2020-01-22 15:30:00 68 mm[Hg] Unive rsity of [facility] Heart rate 2020-01-22 15:30:00 76 /min [facility] Body temperature 2020-01-22 15:30:00 37 Kelley [facility] Respiratory rate 2020-01-22 15:30:00 16 /min Univ [facility] Body height 2020-01-22 15:30:00 165.1 cm [facility] Body weight 2020-01-22 15:30:00 95.664 kg [facility] BMI 2020-01-22 15:30:00 35.10 kg/m2 [facility] Systolic blood 2019-10-16 14:59:00 130 mm[Hg] Univer [facility]ity of [facility] Diastolic blood 2019-10-16 14:59:00 69 mm[Hg] Unive rsity of [facility] Heart rate 2019-10-16 14:59:00 72 /min [facility] Body temperature 2019-10-16 14:59:00 36.67 Kelley [facility] Respiratory rate 2019-10-16 14:59:00 16 /min [facility] Body height 2019-10-16 14:59:00 162.6 cm [facility] Body weight 2019-10-16 14:59:00 87.317 kg [facility] BMI 2019-10-16 14:59:00 33.04 kg/m2 [facility] Systolic blood 2019-10-16 14:59:00 130 mm[Hg] [facility]iver [facility] Diastolic blood 2019-10-16 14:59:00 69 mm[Hg] Unive rsity of [facility] Heart rate 2019-10-16 14:59:00 72 /min [facility] Body temperature 2019-10-16 14:59:00 36.67 Kelley [facility] Respiratory rate 2019-10-16 14:59:00 16 /min Univ [facility] Body height 2019-10-16 14:59:00 162.6 cm [facility] Body weight 2019-10-16 14:59:00 87.317 kg [facility] BMI 2019-10-16 14:59:00 33.04 kg/m2 [facility] Systolic blood 2019-07-09 20:20:00 116 mm[Hg] [facility]iver [facility] Diastolic blood 2019-07-09 20:20:00 61 mm[Hg] Unive rsity of [facility] Heart rate 2019-07-09 20:20:00 68 /min [facility] Body temperature 2019-07-09 20:20:00 36.78 Kelley [facility] Respiratory rate 2019-07-09 20:20:00 16 /min Univ [facility] Body height 2019-07-09 20:20:00 162.6 cm [facility] Body weight 2019-07-09 20:20:00 85.049 kg [facility] BMI 2019-07-09 20:20:00 32.18 kg/m2 [facility] Systolic blood 2019-07-09 20:20:00 116 mm[Hg] [facility]iver [facility] Diastolic blood 2019-07-09 20:20:00 61 mm[Hg] Unive rsity of [facility] Heart rate 2019-07-09 20:20:00 68 /min [facility] Body temperature 2019-07-09 20:20:00 36.78 Kelley [facility] Respiratory rate 2019-07-09 20:20:00 16 /min [facility] Body height 2019-07-09 20:20:00 162.6 cm [facility] Body weight 2019-07-09 20:20:00 85.049 kg [facility] BMI 2019-07-09 20:20:00 32.18 kg/m2 [facility] Systolic blood 2019-02-08 21:03:00 117 mm[Hg] Univer [facility]ity of [facility] Diastolic blood 2019-02-08 21:03:00 71 mm[Hg] Unive rsity of [facility] Heart rate 2019-02-08 21:03:00 84 /min [facility] Body temperature 2019-02-08 21:03:00 36.67 Kelley [facility] Respiratory rate 2019-02-08 21:03:00 16 /min [facility] Body height 2019-02-08 21:03:00 162.6 cm Universi [facility] Body weight 2019-02-08 21:03:00 77.764 kg [facility] BMI 2019-02-08 21:03:00 29.43 kg/m2 [facility] Systolic blood 2019-01-25 20:55:00 110 mm[Hg] Univer [facility]ity of [facility] Diastolic blood 2019-01-25 20:55:00 70 mm[facility]Hg] [facility] Heart rate 2019-01-25 20:55:00 75 /min [facility] Body temperature 2019-01-25 20:55:00 37.22 Kelley [facility] Respiratory rate 2019-01-25 20:55:00 16 /min [facility] Body weight 2019-01-25 20:55:00 79.493 kg [facility] BMI 2019-01-25 20:55:00 30.08 kg/m2 [facility] Procedures Procedure Date / Time Performing Clinician Source Performed POCT TEST 2020-09-01 19:35:00 Arturo Claros [facility] CBC WITH DIFF 2020-02-27 09:53:00 Adrienne Riosjohn [facility] SECTION 2020-02-26 17:59:00 Winston Ma [facility] CBC WITH DIFF 2020-02-26 13:53:00 Vu, [facility] HEPATITIS B SURFACE 2020-02-26 13:53:00 , [facility] ANTIGEN [facility] GALV ONLY - SYPHILIS 2020-02-26 13:53:00 [facility] IGG/IGM [facility] HB ABO GROUPING 2020-02-26 13:22:00 [facility] RHO (D) IMMUNE GLOBULIN 2020-02-26 13:22:00 Tracy Rios [facility] COVID-19 (ID NOW RAPID 2020-02-26 12:37:00 Winston Ma [facility] TESTING) Medical Branch HOSPITAL ADMISSION 2020-02-26 05:01:00 Doctor Higgins [facility] [place] [facility] POCT URINALYSIS 2020-02-25 00:00:00 Arturo Claros [facility] POCT URINALYSIS 2020-02-10 00:00:00 Arturo Claros [facility] TDAP VACCINE, >11 YRS, IM 2020-01-22 15:47:04 Arturo Claros [facility] POCT URINALYSIS 2020-01-22 00:00:00 Arturo Claros [facility] POCT URINALYSIS 2019-10-16 15:00:00 Arturo Claros [facility] FLU VACC ([id number]), 6+ 2019-07-09 20:47:29 Arturo Claros [facility] MONTHS, IM, QUAD [facility] POCT TEST 2019-07-09 20:13:00 Arturo Claros [facility] POCT URINALYSIS W/O 2019-07-09 20:13:00 [facility] SPECIFIC GRAVITY [facility] REPORT OF 2019-07-09 06:01:00 Doctor Higgins [facility] POCT TEST 2019-02-08 21:12:00 Carlita Roblero [facility] POCT TEST 2019-01-25 21:04:00 Carlita Roblero [facility] NO SHOW OR MISSED 2019-01-25 20:38:40 Doctor Ronaldo [facility] APPOINTMENT POLICY [place] [facility] h ACKNOWLEDGEMENT Encounters Start End Encounter Admission Attending Care Care Encounter Source Date/Time Date/Time Type Type Clinicians Facility Department ID 2020-10-07 2020-10-07 Outpatient R ANNIKA NMJOAN [facility] [id number] [facility] 13:15:00 13:15:00 [facility] [id number] [facility] 2020-10-07 2020-10-07 Outpatient Katherine ROBLERO [facility] [id number] Univers 13:15:00 13:15:[address] [facility] 2020-09-16 2020-09-16 Outpatient Katherine CLAROS [facility] [id number] Univers 09:00:00 09:00:00 HOANGOdalis [id number] lupillo o krista [facility] 2020-09-16 2020-09-16 Outpatient Katherine CLAROS [facility] [id number] Univers 09:00:00 09:00:00 ALYSHACLINTON salvadorvincent o [facility] 2020-09-01 2020-09-01 [facility] 1.2.840.114 [id number] Univers 13:59:49 14:46:50 Visit Arturo Murphy SURGERY CONSULTANT 350.1.13.10 [facility] [id number] Pawan as MATERNAL [id number] [facility] ical & CHILD [address] [place] [address] 2020-09-01 2020-09-01 Outpatient Katherine CLAROS [facility] [id number] Univers 14:00:00 14:00:00 SADEJASVIR salvadorvincent lemus [facility] 2020-09-01 2020-09-01 Outpatient Katherine ROBLERO [facility] [id number] Univers 10:45:00 10:45:00 CARLITA [id number] [facility] 2020-09-01 2020-09-01 Outpatient Katherine ROBLERO [facility] [id number] Univers 10:45:00 10:45:00 CARLITA [facility] 2020-08-11 2020-08-11 Patient Tono [facility] 1.2.840.114 [id number] Univers 00:00:00 00:00:00 Outreach Joe MARINELLI 350.1.13.10 i ty of [facility] [id number] Anthony QUIÑONES [id number] [address] 2020-03-31 2020-03-31 Outpatient Katherine ROBLERO [facility] [id number] Univers 08:30:00 08:30:[id number] it[address] [facility] 2020-03-31 2020-03-31 Outpatient R ANNIKA [facility] [id number] Univers 08:30:00 08:30:[address] [facility] 2020-03-13 2020-03-13 [facility]phone [facility] [id number] Univers 00:00:00 00:00:00 Arturo R SURGERY CONSULTANT 350.1.13.10 ity of [facility] 4.2.7.2.686 Pawan as MATERNAL [phone] Med ical & CHILD [address] [place] [address] 2020-03-04 2020-03-04 Outpatient R ANNIKA [facility] [id number] Univers 13:30:00 13:30:[address] [facility] 2020-03-04 2020-03-04 Nurse Visit, Ang-Rmchp Nurse [facility] 1.2 .840.114 [id number] Univers 09:16:03 10:05:57 Visit Carlita Roblero SURGERY CONSULTANT 350.1.13.10 ity of [facility] 4.2.7.2.686 Pawan as MATERNAL [phone] [facility] & CHILD [address] [place] [address] 2020-02-26 2020-02-29 FREDA Mulligan [id number] Univers 07:22:00 13:13:00 Encounter Winston CHEATHAM 350.1.13.[address] [facility] 4.2.7.2.686 Pawan as [id number] [facility] 063 [place] 2020-02-26 2020-02-26 Outpatient P FRANCESCA [facility] AMOS [id number] Univers 07:22:00 07:22:[address] [facility] 2020-02-26 2020-02-26 Orders Doctor FREDA 1.2.840.114 [id number] Univers 00:00:00 00:00:00 Only Unassigned, CHAPARRITA 350.1.13.[address] [place] [facility] 4.2.7.2.686 Pawan as [id number] [facility] 009 [place] 2020-02-25 2020-02-25 Routine [facility] 1.2.840.114 [id number] Univers 12:46:52 13:21:25 Rosyadiranda R SURGERY CONSULTANT 350.1.13.10 ity of Visit REGIONAL 4.2.7.2.686 Pawan as MATERNAL [phone] Med ical & CHILD 107 [facility] 2020-02-25 2020-02-25 Outpatient Katherine CLAROS [facility] [id number] Univers 12:45:00 12:45:00 ROSNDA itvincent o f [facility] 2020-02-25 2020-02-25 Outpatient Katehrine CLAROS [facility] [id number] Univers 08:45:00 08:45:00 ROSHUNDA itvincent o f [facility] 2020-02-25 2020-02-25 Outpatient Katherine CLAROS [facility] [id number] Univers 08:45:00 08:45:00 SADENDA itvincent o f [facility] 2020-02-24 2020-02-24 Outpatient Katherine CLAROS [facility] [id number] Univers 11:00:00 11:00:00 ALYSHANDA ity o f [facility] 2020-02-20 2020-02-20 Outpatient Katherine CLAROS [facility] [id number] Univers 12:45:00 12:45:00 ROSNDA itvincent o f [facility] 2020-02-20 2020-02-20 Outpatient Katherine CLAROS [facility] [id number] Univers 09:30:00 09:30:00 SADEHUNDA itvincent o [facility] 2020-02-20 2020-02-20 Outpatient Katherine CLAROS [facility] [id number] Univers 09:30:00 09:30:00 ROSNDA ity o f [facility] 2020-02-19 2020-02-19 Corporate Health Consultant Ultrasound, [facility] 1.2 .840.114 [id number] Univers 10:27:31 11:12:31 Visit David Goncalves F SURGERY CONSULTANT 350.1.13.10 ity of REGIONAL 4.2.7.2.686 Pawan as MATERNAL [phone] [facility] & CHILD [address] [place] [address] 2020-02-19 2020-02-19 Outpatient R [facility] [id number] Univers 10:30:00 10:30:00 ity of [facility] 2020-02-19 2020-02-19 Outpatient P [facility] [id number] Univers 10:30:00 10:30:00 ity of [facility] 2020-02-19 2020-02-19 Abstract Harlan [facility] 1.2.840.114 [id number] Univers 00:00:00 00:00:00 Roshunda R SURGERY CONSULTANT 350.1.13.10 ity of REGIONAL 4.2.7.2.686 Pawan as MATERNAL [phone] [facility] & CHILD [address] [place] [address] 2020-02-10 2020-02-10 [facility]ine [facility] 1.2.840.114 [id number] Univers 15:11:49 15:44:57 Roshunda R SURGERY CONSULTANT 350.1.13.10 ity of Visit REGIONAL 4.2.7.2.686 Pawan as MATERNAL [id number] [facility] & [address] 2020-02-10 2020-02-10 Outpatient R HARLAN [facility] [id number] Univers 15:30:00 15:30:00 ROSHUNDA [id number] ity o [facility] 2020-02-10 2020-02-10 Outpatient R HARLAN [facility] [id number] Univers 15:30:00 15:30:00 ROSHUNDA ity o [facility] 2020-02-05 2020-02-05 Outpatient R HARLAN [facility] [id number] Univers 15:45:00 15:45:00 ROSHUNDA [id number] ity o f [facility] 2020-02-05 2020-02-05 Outpatient R HARLAN [facility] [id number] Univers 15:45:00 15:45:00 ROSHUNDA ity o [facility] 2020-01-22 2020-01-22 Routine Harlan [facility] 1.2.840.114 [id number] Univers 10:12:56 11:34:20 Roshunda R SURGERY CONSULTANT 350.1.13.10 ity of Visit REGIONAL 4.2.7.2.686 Pawan as MATERNAL [id number] Med ical & CHILD 107 [facility] 2020-01-22 2020-01-22 Corporate Health Consultant Ultrasound, Miki-Gonzalo [facility] 1.2 .840.114 [id number] Univers 09:36:01 10:10:45 Visit David Goncalves SURGERY CONSULTANT 350.1.13.10 ity [facility] 4.2.7.2.686 Pawan as MATERNAL [id number] [facility] ical & CHILD 369 [facility] 2020-01-22 2020-01-22 Outpatient R [facility] [id number] Univers 09:30:00 09:30:[address] [facility] 2020-01-22 2020-01-22 Outpatient P [facility] [id number] Univers 09:30:00 09:30:[address] [facility] 2020-01-22 2020-01-22 Leslye [facility] 1.2.840.114 [id number] Univers 00:00:00 00:00:00 Sadenda R SURGERY CONSULTANT 350.1.13.10 ity [facility] 4.2.7.2.686 Pawan as MATERNAL [id number] [facility] & CHILD [address] [place] [address] 2019-11-13 2019-11-13 [facility] [id number] Univers 10:15:00 10:15:00 ALYSHANDA [id number] ity o f [facility] 2019-11-13 2019-11-13 [facility] [id number] Univers 10:15:00 10:15:00 ROSHUNDA ity o f [facility] 2019-11-04 2019-11-04 [facility]e [facility] 1.2.840.114 [id number] 00:00:00 00:00:00 Roshunda R SURGERY CONSULTANT 350.1.13.10 REGIONAL 4.2.7.2.686 MATERNAL [id number] & CHILD [address] [place] [address] 2019-11-04 2019-11-04 Abstract [facility] 1.2.840.114 [id number] Univers 00:00:00 00:00:00 Roshunda R SURGERY CONSULTANT 350.1.13.10 ity of REGIONAL 4.2.7.2.686 Pawan as MATERNAL [id number] [facility] ical & CHILD 107 [facility] 2019-10-30 2019-10-30 Corporate Health Consultant Ultrasound, [facility] 1.2 .840.114 [id number] Univers 13:16:23 14:31:23 Visit Derek Florez SURGERY CONSULTANT 350.1.13.10 ity of REGIONAL 4.2.7.2.686 Pawan as MATERNAL [id number] [facility] & CHILD 369 [facility] 2019-10-30 2019-10-30 Corporate Health Consultant Ultrasound, [facility] 1.2.840.114 [id number] 13:16:23 14:31:23 [facility] 350.1.13.10 REGIONAL 4.2.7.2.686 MATERNAL [id number] & CHILD [address] [place] [address] 2019-10-30 2019-10-30 Outpatient R [facility] [id number] Univers 13:00:00 13:00:[id number] [facility] 2019-10-30 2019-10-30 Outpatient P [facility] [id number] Univers 13:00:00 13:00:[address] [facility] 2019-10-16 2019-10-16 Routine Claros [facility] 1.2.840.114 [id number] Univers 09:46:06 10:20:36 Roshunda R SURGERY CONSULTANT 350.1.13.10 ity of Visit REGIONAL 4.2.7.2.686 Pawan as MATERNAL [phone] [facility] & CHILD [address] [place] [address] 2019-10-16 2019-10-16 Routine [facility] 1.2.840.114 [id number] 09:46:06 10:20:36 Roshunda R SURGERY CONSULTANT 350.1.13.10 Visit REGIONAL 4.2.7.2.686 MATERNAL [id number] & [address] 2019-10-16 2019-10-16 Outpatient R HARLAN [facility] [id number] Univers 09:45:00 09:45:00 ALYSHANDOdalis [id number] ity o f [facility] 2019-10-16 2019-10-16 Outpatient Katherine CLAROS [facility] [id number] Univers 09:45:00 09:45:00 HOANGA madeleiney o f [facility] 2019-10-15 2019-10-15 Outpatient Katherine CLAROS [facility] [id number] Univers 09:30:00 09:30:00 ARTURO [id number] ity o krista [facility] 2019-10-15 2019-10-15 Outpatient Katherine CLAROS [facility] [id number] Univers 09:30:00 09:30:00 ARTURO wesley o krista [facility] 2019-10-09 2019-10-09 Telephone [facility] 1.2.840.114 [id number] Univers 00:00:00 00:00:00 Carlita Raphael SURGERY CONSULTANT 350.1.13.10 it y of REGIONAL 4.2.7.2.686 Pawan as MATERNAL [phone] Med ical & CHILD [address] [place] [address] 2019-10-09 2019-10-09 Telephone [facility] 1.2.840.114 [id number] 00:00:00 00:00:00 Carlita Raphael SURGERY CONSULTANT 350.1.13.10 REGIONAL 4.2.7.2.686 MATERNAL [id number] & CHILD [address] [place] [address] 2019-10-07 2019-10-07 Outpatient Katherine ROBLERO [facility] [id number] Univers 13:00:00 13:00:00 CARLITA [id number] ity of [facility] 2019-09-17 2019-09-17 Outpatient R HARLAN [facility] [id number] Univers 09:30:00 09:30:00 ARTURO wesley o krista [facility] 2019-09-17 2019-09-17 Telemedici [facility] 1.2.840.114 [id number] Univers 08:31:09 08:46:09 ne Visit Arturo R SURGERY CONSULTANT 350.1.13.10 ity [facility] 4.2.7.2.686 Pawan as MATERNAL [id number] Med ical & CHILD [address] [place] [address] 2019-09-17 2019-09-17 Telemedici [facility] 1.2.840.114 [id number] 08:31:09 08:46:09 ne Visit Roshunda R SURGERY CONSULTANT 350.1.13.10 REGIONAL 4.2.7.2.686 MATERNAL [id number] & CHILD 107 [facility] 2019-09-17 2019-09-17 Outpatient Katherine CLAROS [facility] [id number] Univers 07:45:00 07:45:00 ARTURO [id number] ity o f [facility] 2019-09-06 2019-09-06 Telephone Harlan [facility] [id number] Univers 00:00:00 00:00:00 Roshunda R SURGERY CONSULTANT 350.1.13.10 ity of REGIONAL 4.2.7.2.686 Pawan as MATERNAL [id number] [facility] & CHILD [address] [place] [address] 2019-09-06 2019-09-06 Exeland [facility] [id number] 00:00:00 00:00:00 Rosyadiranda R SURGERY CONSULTANT 350.1.13.10 REGIONAL 4.2.7.2.686 MATERNAL [id number] & CHILD 107 [facility] 2019-08-20 2019-08-20 [facility] 1.2.840.114 [id number] [facility] 08:17:15 09:10:26 ne Visit Alyshanda R SURGERY CONSULTANT 350.1.13.10 ity of [facility] 4.2.7.2.686 Pawan as MATERNAL [id number] [facility] ical & CHILD [address] [place] [address] 2019-08-20 2019-08-20 [facility] 1.2.840.114 [id number] 08:17:15 09:10:26 ne Visit Roshunda R SURGERY CONSULTANT 350.1.13.10 REGIONAL 4.2.7.2.686 MATERNAL [id number] & CHILD 107 [facility] 2019-08-20 2019-08-20 Outpatient Katherine CLAROS [facility] [id number] Univers 09:00:00 09:00:00 ARTURO [id number] ity o f [facility] 2019-08-20 2019-08-20 Outpatient Katherine CLAROS, [facility] [id number] Univers 09:00:00 09:00:00 ALYSHANDOdalis wesley o krista [facility] 2019-08-06 2019-08-06 Outpatient Katherine CLAROS [facility] [id number] Univers 12:45:00 12:45:00 ARTURO wesley o krista [facility] 2019-07-09 2019-07-09 Initial Harlan [facility] 1.2.840.114 [id number] Univers 14:07:44 15:34:44 Alyshanda R SURGERY CONSULTANT 350.1.13.10 ity of Visit REGIONAL 4.2.7.2.686 Pawan as MATERNAL [id number] Med ical & CHILD [address] [place] [address] 2019-07-09 2019-07-09 Vani [facility] 1.2.840.114 [id number] 14:07:44 15:34:44 Alyshanda R SURGERY CONSULTANT 350.1.13.10 Visit REGIONAL 4.2.7.2.686 MATERNAL [id number] & CHILD [address] [place] [address] 2019-07-09 2019-07-09 Outpatient Katherine CLAROS, [facility] [id number] Univers 13:00:00 14:19:29 ARTURO wesley o krista [facility] 2019-07-09 2019-07-09 Orders Doctor BARBA 1.2.840.114 [id number] 00:00:00 00:00:00 Only Unassigned, CHAPARRITA 350.1.13.[address] [place] [facility] 4.2.7.2.686 [id number] [facility] 2019-07-09 2019-07-09 Orders Doctor FREDA 1.2.840.114 [id number] Univers 00:00:00 00:00:00 Only Unassigned, CHAPARRITA [id number] [place] [facility] 4.2.7.2.686 Pawan as [phone] [address] 2019-02-18 2019-02-18 Outpatient Katherine ROBLERO [facility] [id number] Univers 00:00:00 00:00:[address] [facility] 2019-02-18 2019-02-18 Outpatient R ANNIKA, [facility] [id number] Univers 00:00:00 00:00:[address] [facility] 2019-02-13 2019-02-13 [facility] [id number] Univers 00:00:00 00:00:[address] [facility] 2019-02-11 2019-02-11 Outpatient Katherine ANNIKA [facility] [id number] Univers 11:23:47 23:59:[address] [facility] 2019-02-08 2019-02-08 Nurse Visit, Ang-Rmchp Nurse [facility] [id number] Univers 16:02:41 16:19:10 Visit Carlita Roblero SURGERY CONSULTANT [id number] ity of [facility] 4.2.7.2.686 Pawan as MATERNAL [phone] [facility] ical & CHILD [address] [place] [address] 2019-02-06 2019-02-06 Case Annika [facility] [id number] Univers 00:00:00 00:00:00 Management Carlita Raphael SURGERY CONSULTANT 350.1.13.10 ity of [address]686 Pawan as MATERNAL [phone] [facility] & CHILD [address] [place] [address] 2019-01-25 2019-01-25 Office Annika [facility] [id number] Univers 15:39:39 16:15:19 Visit Carlita Raphael SURGERY CONSULTANT 350.1.13.10 it y of [facility] 42.7.2.686 Pawan as MATERNAL [phone] [facility] ical & CHILD [address] [place] [address] 2019-01-25 2019-01-25 Orders Doctor FREDA [id number] Univers 00:00:00 00:00:00 Only Unassigned, CAHPARRITA 350.1.13.10 [place] 4.2.7.2.686 Pawan as [phone] [address] Results Test Description Test Time Test Comments Results Result Comments Source POCT TEST 2020-09-01 19:35:00 Test Item Value Reference Range Interpretation Comme nts POCT PREG (test code = 1605) Negative On board controls acceptable with C Line (test code = 3574) Yes POCT PREG LOT # (test code = 3575) POCT PREG TEST DATE (test code = 3576) [id number] 19:35:00 Test Item Value Reference Range Interpretation Comments POCT PREG (test code = 1605) Negative On board controls acceptable with C Yes Line (test code = 3574) POCT PREG LOT # (test code = 3575) POCT PREG TEST DATE (test code = 3576) [facility] [id number] 10:17:00 Test Item Value Reference Range Interpretation Comments WBC (test code = See_Comment H [Automated 6690-2) message] The system which generated this result transmit eddie reference range : 4.30 - 11.10 10*3/?L. The reference range was not used to interpret this result as normal/abnormal . RBC (test code = See_Comment L [Automated 789-8) message] The system which generated this result transmit eddie reference range : 3.93 - 5.25 10*6/?L. The reference range was not used to interpret this result as normal/abnormal . HGB (test code = 10.4 g/dL 11.6-15 L 718-7) HCT (test code = 31.1 % 35.7-45.2 L 4544-3) MCV (test code = 86.6 fL 80.6-95.5 787-2) MCH (test code = 29.0 pg 25.9-32.8 785-6) MCHC (test code = 33.4 g/dL 31.6-35.1 786-4) RDW-SD (test code = 39.6 fL 39-49.9 50941-0) RDW-CV (test code = 12.6 % 12-15.5 788-0) PLT (test code = See_Comment H [Automated 777-3) message] The system which generated this result transmit eddie reference range : 166 - 358 10*3/ ?L. The reference range was not u sed to interpret th is result as normal/abnormal . MPV (test code = 10.3 fL 9.5-12.9 39300-5) NRBC/100 WBC (test See_Comment [Automat ed code = 7917183022) message] The system which generated this result transmit eddie reference range : 0.0 - 10.0 /100 WBCs. The reference range was not used to interpret this result as normal/abnormal . NRBC x10^3 (test code <0.01 See_Comment [Auto mated = [id number]) message] The system which generated this result transmit eddie reference range : 10*3/?L. The reference range was not used to interpret this result as normal/abnormal . GRAN MAT (NEUT) % 77.3 % (test code = 770-8) IMM GRAN % (test code 0.70 % = 8728964487) LYMPH % (test code = 13.2 % 736-9) MONO % (test code = 7.8 % 5905-5) EOS % (test code = 0.8 % 713-8) BASO % (test code = 0.2 % 706-2) GRAN MAT x10^3(ANC) 11.83 10*3/uL 1.88-7.09 H (test code = 1333778581) IMM GRAN x10^3 (test 0.11 10*3/uL 0-0.06 H code = 6670047705) LYMPH x10^3 (test code 2.03 10*3/uL 1.32-3.29 = 731-0) MONO x10^3 (test code 1.20 10*3/uL 0.33-0.92 H = 742-7) EOS x10^3 (test code = 0.13 10*3/uL 0.03-0.39 711-2) BASO x10^3 (test code 0.03 10*3/uL 0.01-0.07 = 704-7) Lab Interpretation Abnormal (test code = 33003-1) [facility] IMMUNE [id number] 22:19:01 Test Item Value Reference Range Interpretation Comments RHIG CANDIDATE? No- see comment Patient i s not a (test code = candidate for R hIg- 5055) Patient is Rh Positive.Perfor med at [facility] Laboratory Services - [facility] Blood [address] [address]Qhes Free: [phone] A No. [id number] [facility] ONLY - SYPHILIS [id number] 16:23:00 Test Item Value Reference Range Interpretation Comments Syphilis IgG/IgM (test Non-reactive Non-reactive code = 05380-7) CURT (test code = CURT) Non-reactive - No serologic evidence of T. pallidum infection. Cannot exclude incubating or early syphilis. Submit a second specimen in 2-4 weeks if syphilis is clinically suspected. Equivocal - Further testing to follow. Reactive - Further testing to follow. Lab Interpretation (test Normal code = 23210-5) [facility] B Surface [id number] 15:14:00 Test Item Value Reference Range Interpretation Comments HBsAg Semi-Quantitative (test code = Negative Negative 5195-3) [facility] Screen - ONCE [id number] 14:36:39 Test Item Value Reference Range Interpretation Comments ABO & RH (test code O POSITIVE Performe d at [facility] = 20) Laboratory Serv [facility] Blood [facility]3 [address] [facility] [address] [address]N[place] Free: [phone] A No. [id number] IAT (test code = Negative Performed a t [facility] 1185) Laboratory Serv [facility] Blood [facility] [address]Bzwq Free: [phone] A No. [id number] [facility] with [id number] 14:10:00 Test Item Value Reference Range Interpretation Comments WBC (test code = See_Comment H [Automated 9590-2) message] The sy stem which generated this result transmitted reference range : 4.30 - 11.10 10*3/?L. The reference range was not used to interpret this result as normal/abnormal . RBC (test code = See_Comment L [Automated 459-8) message] The sy stem which generated this result transmitted reference range : 3.93 - 5.25 10*6/?L. The reference range was not used to interpret this result as normal/abnormal . HGB (test code = 10.7 g/dL 11.6-15 L 718-7) HCT (test code = 31.8 % 35.7-45.2 L 4544-3) MCV (test code = 85.5 fL 80.6-95.5 787-2) MCH (test code = 28.8 pg 25.9-32.8 785-6) MCHC (test code = 33.6 g/dL 31.6-35.1 786-4) RDW-SD (test code = 39.2 fL 39-49.9 84645-8) RDW-CV (test code = 12.8 % 12-15.5 788-0) PLT (test code = See_Comment H [Automated 777-3) message] The sy stem which generated this result transmitted reference range : 166 - 358 10*3/ ?L. The reference r carmina was not used to interpret this result as normal/abnormal . MPV (test code = 10.1 fL 9.5-12.9 26312-6) NRBC/100 WBC (test See_Comment [Automat ed code = 9442089454) message] The system which generated this result transmitted reference range : 0.0 - 10.0 /100 WBCs. The refer ence range was not u sed to interpret th is result as normal/abnormal . NRBC x10^3 (test code <0.01 See_Comment [Auto mated = 1107316456) message] The s ystem which generated this result transmitted reference range : 10*3/?L. The reference range was not used to interpret this result as normal/abnormal . GRAN MAT (NEUT) % 75.3 % (test code = 770-8) IMM GRAN % (test code 0.70 % = 3324155015) LYMPH % (test code = 16.6 % 736-9) MONO % (test code = 6.1 % 5905-5) EOS % (test code = 1.1 % 713-8) BASO % (test code = 0.2 % 706-2) GRAN MAT x10^3(ANC) 9.58 10*3/uL 1.88-7.09 H (test code = 5691441678) IMM GRAN x10^3 (test 0.09 10*3/uL 0-0.06 H code = 3621994261) LYMPH x10^3 (test code 2.11 10*3/uL 1.32-3.29 = 731-0) MONO x10^3 (test code 0.77 10*3/uL 0.33-0.92 = 742-7) EOS x10^3 (test code = 0.14 10*3/uL 0.03-0.39 711-2) BASO x10^3 (test code 0.03 10*3/uL 0.01-0.07 = 704-7) Lab Interpretation Abnormal (test code = 07896-8) [facility] ([facility] NOW RAPID TESTING)2020-02-26 13:30:00 Test Item Value Reference Range Interpretation Comments SARS-CoV-2 Rapid ID NOW Not Detected Not Detected (test code = 84819-2) CURT (test code = CURT) ID NOW COVID-19 Assay is an isothermal nucleic acid amplification test intended for the qualitative detection of nucleic acid from SARS-CoV-2 viral RNA in nasopharyngeal (CHILD CARE DIRECTOR) specimens. It is used under Emergency Use Authorization (EUA) by FDA. The limit of detection (LOD) of the assay is 125 Genome Equivalents/mL. A positive result is indicative of the presence of SARS-CoV-2 RNA. ?Clinical correlation with patient history and other diagnostic information is necessary to determine patient infection status. A negative (Not Detected) result does not preclude SARS-CoV-2 infection. In patients with clinical symptoms and other tests that are consistent with SARS-CoV-2 infection, negative results should be treated as presumptive negative and a new specimen should be tested with alternative PCR molecular test. Invalid: Please collect a new specimen for repeat patient testing if clinically indicated. Lab Interpretation Normal (test code = 96385-6) [facility] W SPECIFIC [id number] 18:00:00 Test Item Value Reference Range Interpretation Comments POCT U SP GRAV (test code = 3255) . 1.005-1.025 POCT PH U (test code = 3254) . 5-8 POCT U LEUK EST (test code = 3263) . Negative - Negative POCT U NIT (test code = 3262) . Negative - Negative POCT U PROT (test code = 3259) trace Negative - Negative POCT U GLU (test code = 3256) neg Negative - Negative POCT U KETONE (test code = 3258) . Negative - Negative POCT U UROBILI (test code = 3260) . 0.2-1 POCT U BILI (test code = 3261) . Negative - Negative POCT U BLD (test code = 3257) . Negative - Negative POCT U COLOR (test code = 3266) . POCT U APPEAR (test code = 3267) [facility] URINALYSIS W SPECIFIC [id number] 18:00:00 Test Item Value Reference Range Interpretation Comments POCT U SP GRAV (test code = 3255) . 1.005-1.025 POCT PH U (test code = 3254) . 5-8 POCT U LEUK EST (test code = 3263) . Negative - Negative POCT U NIT (test code = 3262) . Negative - Negative POCT U PROT (test code = 3259) trace Negative - Negative POCT U GLU (test code = 3256) neg Negative - Negative POCT U KETONE (test code = 3258) . Negative - Negative POCT U UROBILI (test code = 3260) . 0.2-1 POCT U BILI (test code = 3261) . Negative - Negative POCT U BLD (test code = 3257) . Negative - Negative POCT U COLOR (test code = 3266) . POCT U APPEAR (test code = 3267) [facility] URINALYSIS W SPECIFIC [id number] 18:00:00 Test Item Value Reference Range Interpretation Comments POCT U SP GRAV (test code = 3255) . 1.005-1.025 POCT PH U (test code = 3254) . 5-8 POCT U LEUK EST (test code = 3263) . Negative - Negative POCT U NIT (test code = 3262) . Negative - Negative POCT U PROT (test code = 3259) trace Negative - Negative POCT U GLU (test code = 3256) neg Negative - Negative POCT U KETONE (test code = 3258) . Negative - Negative POCT U UROBILI (test code = 3260) . 0.2-1 POCT U BILI (test code = 3261) . Negative - Negative POCT U BLD (test code = 3257) . Negative - Negative POCT U COLOR (test code = 3266) . POCT U APPEAR (test code = 3267) [facility] URINALYSIS W SPECIFIC [id number] 20:54:00 Test Item Value Reference Range Interpretation Comments POCT U SP GRAV (test code = 3255) . 1.005-1.025 POCT PH U (test code = 3254) . 5-8 POCT U LEUK EST (test code = 3263) . Negative - Negative POCT U NIT (test code = 3262) . Negative - Negative POCT U PROT (test code = 3259) trace Negative - Negative POCT U GLU (test code = 3256) normal Negative - Negative POCT U KETONE (test code = 3258) . Negative - Negative POCT U UROBILI (test code = 3260) . 0.2-1 POCT U BILI (test code = 3261) . Negative - Negative POCT U BLD (test code = 3257) . Negative - Negative POCT U COLOR (test code = 3266) POCT U APPEAR (test code = 3267) [facility] URINALYSIS W SPECIFIC [id number] 15:31:00 Test Item Value Reference Range Interpretation Comments POCT U SP GRAV (test code = 3255) . 1.005-1.025 POCT PH U (test code = 3254) . 5-8 POCT U LEUK EST (test code = 3263) . Negative - Negative POCT U NIT (test code = 3262) . Negative - Negative POCT U PROT (test code = 3259) trace Negative - Negative POCT U GLU (test code = 3256) normal Negative - Negative POCT U KETONE (test code = 3258) . Negative - Negative POCT U UROBILI (test code = 3260) . 0.2-1 POCT U BILI (test code = 3261) . Negative - Negative POCT U BLD (test code = 3257) . Negative - Negative POCT U COLOR (test code = 3266) POCT U APPEAR (test code = 3267) [facility] URINALYSIS W SPECIFIC [id number] 15:31:00 Test Item Value Reference Range Interpretation Comments POCT U SP GRAV (test code = 3255) . 1.005-1.025 POCT PH U (test code = 3254) . 5-8 POCT U LEUK EST (test code = 3263) . Negative - Negative POCT U NIT (test code = 3262) . Negative - Negative POCT U PROT (test code = 3259) trace Negative - Negative POCT U GLU (test code = 3256) normal Negative - Negative POCT U KETONE (test code = 3258) . Negative - Negative POCT U UROBILI (test code = 3260) . 0.2-1 POCT U BILI (test code = 3261) . Negative - Negative POCT U BLD (test code = 3257) . Negative - Negative POCT U COLOR (test code = 3266) POCT U APPEAR (test code = 3267) [facility] URINALYSIS W SPECIFIC [id number] 15:31:00 Test Item Value Reference Range Interpretation Comments POCT U SP GRAV (test code = 3255) . 1.005-1.025 POCT PH U (test code = 3254) . 5-8 POCT U LEUK EST (test code = 3263) . Negative - Negative POCT U NIT (test code = 3262) . Negative - Negative POCT U PROT (test code = 3259) trace Negative - Negative POCT U GLU (test code = 3256) normal Negative - Negative POCT U KETONE (test code = 3258) . Negative - Negative POCT U UROBILI (test code = 3260) . 0.2-1 POCT U BILI (test code = 3261) . Negative - Negative POCT U BLD (test code = 3257) . Negative - Negative POCT U COLOR (test code = 3266) POCT U APPEAR (test code = 3267) [facility] URINALYSIS W SPECIFIC [id number] 15:31:00 Test Item Value Reference Range Interpretation Comments POCT U SP GRAV (test code = 3255) . 1.005-1.025 POCT PH U (test code = 3254) . 5-8 POCT U LEUK EST (test code = 3263) . Negative - Negative POCT U NIT (test code = 3262) . Negative - Negative POCT U PROT (test code = 3259) trace Negative - Negative POCT U GLU (test code = 3256) normal Negative - Negative POCT U KETONE (test code = 3258) . Negative - Negative POCT U UROBILI (test code = 3260) . 0.2-1 POCT U BILI (test code = 3261) . Negative - Negative POCT U BLD (test code = 3257) . Negative - Negative POCT U COLOR (test code = 3266) POCT U APPEAR (test code = 3267) [facility] URINALYSIS W SPECIFIC [id number] 15:00:00 Test Item Value Reference Range Interpretation Comments POCT U SP GRAV (test code = . 1.005-1.025 3255) POCT PH U (test code = 3254) 7 mg/dl 5-8 POCT U LEUK EST (test code = neg Negative - Negative 3263) POCT U NIT (test code = 3262) neg Negative - Negative POCT U PROT (test code = 3259) trace Negative - Negative POCT U GLU (test code = 3256) neg Negative - Negative POCT U KETONE (test code = 3258) neg Negative - Negative POCT U UROBILI (test code = . 0.2-1 3260) POCT U BILI (test code = 3261) . Negative - Negative POCT U BLD (test code = 3257) neg Negative - Negative POCT U COLOR (test code = 3266) POCT U APPEAR (test code = 3267) Lab Interpretation (test code = Abnormal 78727-3) [facility] [id number] 20:13:00 Test Item Value Reference Range Interpretation Comments POCT PREG (test code = 1605) Positive On board controls acceptable with C Yes Line (test code = 3574) POCT PREG LOT # (test code = 3575) POCT PREG TEST DATE (test code = 3576) [facility] URINALYSIS W/O SPECIFIC [id number] 20:13:00 Test Item Value Reference Range Interpretation Comments POCT PH U (test code = 3254) 5 mg/dl 5-8 POCT U LEUK EST (test code = Trace Negative - Negative 3263) POCT U NIT (test code = 3262) Neg Negative - Negative POCT U PROT (test code = 3259) Trace Negative - Negative POCT U GLU (test code = 3256) Neg Negative - Negative POCT U KETONE (test code = 3258) None Negative - Negative POCT U BLD (test code = 3257) Neg Negative - Negative [facility] [id number] 20:13:00 Test Item Value Reference Range Interpretation Comments POCT PREG (test code = 1605) Positive On board controls acceptable with C Yes Line (test code = 3574) POCT PREG LOT # (test code = 3575) POCT PREG TEST DATE (test code = 3576) [facility] URINALYSIS W/O SPECIFIC [id number] 20:13:00 Test Item Value Reference Range Interpretation Comments POCT PH U (test code = 3254) 5 mg/dl 5-8 POCT U LEUK EST (test code = Trace Negative - Negative 3263) POCT U NIT (test code = 3262) Neg Negative - Negative POCT U PROT (test code = 3259) Trace Negative - Negative POCT U GLU (test code = 3256) Neg Negative - Negative POCT U KETONE (test code = 3258) None Negative - Negative POCT U BLD (test code = 3257) Neg Negative - Negative [facility] [id number] 21:12:00 Test Item Value Reference Range Interpretation Comments POCT PREG (test code = 1605) Negative On board controls acceptable with C Yes Line (test code = 3574) POCT PREG LOT # (test code = 3575) POCT PREG TEST DATE (test code = 3576) [facility] [id number] 21:04:00 Test Item Value Reference Range Interpretation Comments POCT PREG (test code = 1605) Negative On board controls acceptable with C Yes Line (test code = 3574) POCT PREG LOT # (test code = 3575) POCT PREG TEST DATE (test code = 3576) [facility] [id number] 21:04:00 Test Item Value Reference Range Interpretation Comments POCT PREG (test code = 1605) Negative On board controls acceptable with C Yes Line (test code = 3574) POCT PREG LOT # (test code = 3575) POCT PREG TEST DATE (test code = 3576) [facility]
--- NOTE | 2022-02-11 15:03 | EDPHYS ---
Physician Documentation [facility] Name: Rosa Rodriguez Age: 26 yrs Sex: Female : 1995 Arrival Date: 02/11/2022 Time: 14:41 Bed IW2 Private MD: ED Physician Thor Turner HPI: 02/11 17:39 This 26 yrs old Female presents to ER via Ambulatory with complaints of kb Vomiting/Diarrhea. 17:39 The patient presents to the emergency department with nausea, vomiting, diarrhea. kb Onset: The symptoms/episode began/occurred 5 day(s) ago. Possible causes: unknown. The symptoms are aggravated by nothing. The symptoms are alleviated by nothing. Associated signs and symptoms: Pertinent positives: diarrhea, nausea, vomiting, Pertinent negatives: abdominal pain, fever. Severity of symptoms: At their worst the symptoms were moderate in the emergency department the symptoms have improved moderately. The patient has not experienced similar symptoms in the past. The patient has not recently seen a physician. Pt reports n/v/d for 5 days. States her 2 children have had similar symptoms for the same amount of time. Vomiting has resolved, but diarrhea persists. Tolerating po intake now. . 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 - Social history:: Smoking status: Patient denies any tobacco usage or history of. Patient/guardian denies using alcohol. ROS: 17:38 Constitutional: Negative for fever, chills, and weight loss. kb 17:38 Abdomen/GI: Positive for nausea, vomiting, and diarrhea, Negative for abdominal pain. 17:38 All other systems are negative. Exam: 17:38 Constitutional: This is a well developed, well nourished patient who is awake, alert, kb and in no acute distress. Head/Face: Normocephalic, atraumatic. ENT: Moist Mucous membranes Cardiovascular: Regular rate and rhythm with a normal S1 and S2. No gallops, murmurs, or rubs. No pulse deficits. Respiratory: Respirations even and unlabored. No increased work of breathing. Talking in full sentences Abdomen/GI: Soft, non-tender. No distention Skin: Warm, dry with normal turgor. Normal color. MS/ Extremity: Pulses equal, no cyanosis. Neurovascular intact. Full, normal range of motion. Neuro: Awake and alert, GCS 15, oriented to person, place, time, and situation. Moves all extremities. Normal gait. Psych: Awake, alert, with orientation to person, place and time. Behavior, mood, and affect are within normal limits. Vital Signs: 14:57 BP 116 / 62; Pulse 82; Resp 18; Temp 97.5(TE); Pulse Ox 100% on R/A; Weight 99.16 kg; ld1 Height 5 ft. 7 in. (170.18 cm); Pain 0/10; 14:57 Body Mass Index 34.24 (99.16 kg, 170.18 cm) ld1 MDM: 15:00 Patient medically screened. kb 17:38 Data reviewed: vital signs, nurses notes. Data interpreted: Pulse oximetry: on room air kb is 100 %. Interpretation: normal. Counseling: I had a detailed discussion with the patient and/or guardian regarding: the historical points, exam findings, and any diagnostic results supporting the discharge/admit diagnosis, the need for outpatient follow up, a family practitioner, to return to the emergency department if symptoms worsen or persist or if there are any questions or concerns that arise at home. 17:39 ED course: Pt has been tolerating PO intake. No vomiting today. Pt is nontoxic in kb appearance. No abd tenderness. . Administered Medications: No medications were administered Disposition: 17:50 Co-signature as Attending Physician, Thor Turner MD. rn Disposition Summary: 02/11/22 15:02 Discharge Ordered Location: Home kb Condition: Stable kb Diagnosis - Nausea with vomiting, unspecified kb - Diarrhea, unspecified kb Followup: kb - With: Emergency Department - When: As needed - Reason: Worsening of condition Followup: kb - With: Private Physician - When: 2 - 3 days - Reason: Recheck today's complaints, Continuance of care, Re-evaluation by your physician Discharge Instructions: - Discharge Summary Sheet kb - Viral Gastroenteritis, Adult, Mxaw-su-Pbys kb Forms: - Medication Reconciliation Form kb - Thank You Letter kb - Antibiotic Education kb - Prescription Opioid Use kb Signatures: Kia Gaspar, YAM CURER-C YAM CURER-Ckb Thor Turner MD MD rn Ratna Elizalde RN RN ld1 Corrections: (The following items were deleted from the chart) 17:41 17:39 ED course: Pt has been tolerating PO intake. No vomiting today. . kb kb
--- NOTE | 2022-02-11 15:03 | ER ---
Nurse's Notes [facility] Name: Rosa Rodriguez Age: 26 yrs Sex: Female : 1995 Arrival Date: 02/11/2022 Time: 14:41 Bed IW2 Private MD: Diagnosis: Nausea with vomiting, unspecified;Diarrhea, unspecified Presentation: 02/11 14:57 Chief complaint: Patient states: V/D X 5 days. No fever. Coronavirus screen: Client ld1 presents with at least one sign or symptom that may indicate coronavirus-19. Standard/surgical mask placed on the client. Ebola Screen: No symptoms or risks identified at this time. Initial Sepsis Screen: Does the patient meet any 2 criteria? No. Patient's initial sepsis screen is negative. Does the patient have a suspected source of infection? No. Patient's initial sepsis screen is negative. Risk Assessment: Do you want to hurt yourself or someone else? Patient reports no desire to harm self or others. Onset of symptoms was February 11, 2022. 14:57 Method Of Arrival: Ambulatory ld1 14:57 Acuity: EUGENE 4 ld1 Triage Assessment: 14:58 General: Appears in no apparent distress. comfortable, Behavior is calm, cooperative, ld1 appropriate for age. Pain: Denies pain. EENT: No signs and/or symptoms were reported regarding the EENT system. Neuro: Level of Consciousness is awake, alert, obeys commands, Oriented to person, place, time, situation. Cardiovascular: Capillary refill < 3 seconds Patient's skin is warm and dry. Respiratory: Airway is patent Respiratory effort is even, unlabored. GI: Abdomen is round non-distended, Reports diarrhea, nausea, vomiting. : No signs and/or symptoms were reported regarding the genitourinary system. Derm: No signs and/or symptoms reported regarding the dermatologic system. Musculoskeletal: No signs and/or symptoms reported regarding the musculoskeletal system. 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 - Social history:: Smoking status: Patient denies any tobacco usage or history of. Patient/guardian denies using alcohol. Screenin:32 Abuse screen: Denies threats or abuse. Denies injuries from another. Nutritional eh3 screening: No deficits noted. Tuberculosis screening: No symptoms or risk factors identified. Fall Risk None identified. Vital Signs: 14:57 BP 116 / 62; Pulse 82; Resp 18; Temp 97.5(TE); Pulse Ox 100% on R/A; Weight 99.16 kg; ld1 Height 5 ft. 7 in. (170.18 cm); Pain 0/10; 14:57 Body Mass Index 34.24 (99.16 kg, 170.18 cm) ld1 ED Course: 14:41 Patient arrived in ED. rg4 14:54 Kia Gaspar FNP-C [facility]. kb 14:54 Thor Turner MD is Attending Physician. kb 14:58 Triage completed. ld1 14:58 Arm band placed on right wrist. ld1 15:32 Patient has correct armband on for positive identification. eh3 15:32 No provider procedures requiring assistance completed. Patient did not have IV access eh3 during this emergency room visit. Administered Medications: No medications were administered Medication: 15:32 VIS not applicable for this client. eh3 Outcome: 15:02 Discharge ordered by . kb 15:32 Condition: stable eh3 15:32 Discharge instructions given to patient, Instructed on discharge instructions, follow up and referral plans. Demonstrated understanding of instructions, follow-up care. 15:32 Discharged to home ambulatory. eh3 15:32 Patient left the ED. eh3 Signatures: Kia Gaspar FNP-C FNP-Ckb Garcia, Rubi rg4 Ratna Elizalde, RN RN ld1 Mariah Strong RN RN eh3
[2022-02-13 03:34] VITALS: BP 116/62; TEMP 97.5; O2SAT 100
== END 2022-02-11 15:32 | disposition home or self-care (01) ==
LOC: ER 14:34
DX: R11.2 Nausea with vomiting, unspecified (principal); R19.7 Diarrhea, unspecified
CPT/HCPCS: 99281